=== PATIENT | male | born 1945 | race Hispanic/Latino ===

== ENCOUNTER 2019-12-07 07:09 | Day surgery (SDC) | payer OTHER ==
[2019-12-04 10:18] VITALS: BP 156/64; PULSE 63; RESP 16; TEMP 97
[2019-12-07] VITALS (11 sets, daily range): BP systolic 121–147; BP diastolic 61–71; PULSE 58–67; RESP 12–18; TEMP 96.8–97
[~2019-12-07] VITALS: Ht 167.6 cm; Wt 105.3 kg
[2019-12-07] MEDS ORDERED: SODIUM CHLORIDE 0.9% 1000ML 1,000 ML IV ONE (08:29)
[2019-12-07] MEDS ORDERED: NITROGLYCERIN 2 MG/VIAL VIAL IV ONE (09:47)
[2019-12-07] MEDS ORDERED: SODIUM BICARB 50MEQ 50ML VIAL ONE (09:47)
[2019-12-07] MEDS ORDERED: HEPARIN SODIUM 1000UNIT/ML 10ML VIAL ONE (09:47)
[2019-12-07] MEDS ORDERED: IODIXANOL 320 MG/ML 100 ML VIAL ONE (09:47)
[2019-12-07] MEDS ORDERED: LIDOCAINE HCL 2% 20ML ONE (09:48)
[2019-12-07] MEDS ORDERED: MIDAZOLAM HCL 1 MG/ML 2ML VIAL ONE (09:48)
[2019-12-07] MEDS ORDERED: FENTANYL CITRATE PF 50 MCG/1 ML 2ML VIAL ONE (09:48)
--- NOTE | 2019-12-07 11:20 | NUR ---
report received call from clarence morley rn from [employer]. pt status post afr, surgical consult, pt to f/u next week, iv fluid hydration x4 hours at 150ml/hr, v/s stable, gissel with dr vickers notified. pt had perclose done after 6fr sheath removal.
--- NOTE | 2019-12-07 13:25 | NUR ---
REPORT RECEIVED REPORT FROM OSCAR CHAU RN FOR CONTINUATION OF CARE
--- NOTE | 2019-12-07 13:52 | NUR ---
PER PT REQUEST I CALLED HIS DAUGHTER MILLI CR AND GAVE HER VERBAL DISCHARGE INSTRUCTIONS. SHE VERBALIZED UNDERSTANDING. I ALSO GAVE PT HIS PRINTED AND VERBAL DISCHARGE INSTRUCTION. HE VERBALIZED UNDERSTANDING. PT ENDORSED TO BENNETT THAKKAR
--- NOTE | 2019-12-07 15:35 | NUR ---
discharge pt in no distress. reinforced discharge instructions to pt. rt groin free from hematoma or bleeding. pt taken out via w/c in no distress by yamileth sarmiento
== END 2019-12-07 15:35 | disposition home or self-care (01) ==
LOC: DAH 07:09
PROVIDERS: ATTEND Internal Medicine Cardiovascular Disease
DX: I70.203 Unspecified atherosclerosis of native arteries of extremities, bilateral legs (principal); I10 Essential (primary) hypertension; E78.5 Hyperlipidemia, unspecified; E11.9 Type 2 diabetes mellitus without complications; Z79.01 Long term (current) use of anticoagulants; Z79.82 Long term (current) use of aspirin; Z79.899 Other long term (current) drug therapy
CPT/HCPCS: 36200; 36415; 71045; 75630; 80048; 81003; 82948 ×2; 85025; 85610; 85730; 93005; A4215; A4216; A4221; A4222; A4223 ×3; A4606; A4663; C1760; C1769; C1894 ×4; J1644 ×2; J2250; J3010; J3490 ×3; J7030; Q9967

== ENCOUNTER → 2019-12-16 | Outpatient (CLI) | payer OTHER ==
[~2019-12-16] MED LIST: AEC81 PO; AMLO10TA7 PO; ATOR10TA PO; CEFUROXIME SODIUM 1.5 GM VIAL IVP SCH; GLIM4TAB36 PO; ICOS1CAP PO; LEVO25TA54 PO; LOSA100T58 PO; METF-444 PO; SENN8.6T32 PO; SITA100T12 PO; SPIR50TA PO; vit d2 PO
[2019-12-16 10:25] LABS: BASOPHILS % (AUTO) 0.4 % (0.0-5.0); EOSINOPHILS % (AUTO) 2.4 % (0.0-8.0); HEMATOCRIT 36.6 % (42-54); LYMPHOCYTES % (AUTO) 15.6 % (21.0-51.0); MEAN CORPUSCULAR HEMOGLOBIN 29.5 pg (27.0-33.0); MEAN CORPUSCULAR HGB CONC 32.8 g/dL (32.0-36.0); MEAN CORPUSCULAR VOLUME 89.9 fL (79-99); MONOCYTES % (AUTO) 10.1 % (3.0-13.0); NEUTROPHILS % (AUTO) 71.2 % (40.0-77.0); PLATELET COUNT (AUTO) 205 K/uL (130-400); RED BLOOD CELL COUNT(AUTO) 4.07 MIL/uL (4.50-6.20); RED CELL DISTRIBUTION WIDTH 14.3 % (11.0-15.5); WHITE BLOOD COUNT (AUTO) 7.9 K/uL (4.8-10.8)
[2019-12-16 10:40] LABS: INR 0.97 (0.85-1.15); PARTIAL THROMBOPLASTIN TIME 26.8 SEC (26.3-35.5); PROTHROMBIN TIME 10.5 SEC (9.6-11.6)
[2019-12-16 10:46] LABS: ALBUMIN 3.7 g/dL (3.5-5.0); BILIRUBIN,TOTAL 0.5 mg/dL (0.2-1.0); POTASSIUM 4.8 mmol/L (3.5-5.1); TOTAL PROTEIN, SERUM 7.5 g/dL (6.0-8.3)
[2019-12-16 11:03] LABS: HEMOGLOBIN A1C 7.6 % (4.0-6.0)
== END | disposition home or self-care (01) ==
LOC: LAB 05:00 → EDSTATUS 12-22 07:30
PROVIDERS: ATTEND Thoracic Surgery (Cardiothoracic Vascular Surgery)
DX: Z01.818 Encounter for other preprocedural examination (principal); I73.9 Peripheral vascular disease, unspecified; M47.814 Spondylosis without myelopathy or radiculopathy, thoracic region; M95.4 Acquired deformity of chest and rib
CPT/HCPCS: 36415; 71046; 80053; 83036; 85025; 85610; 85730; 93005; A6260; U0003

== ENCOUNTER 2021-08-17 22:34 | Emergency (ER) | payer OTHER, MEDICARE ==
[~2021-08-17] VITALS: Ht 167.6 cm; Wt 113.4 kg
[~2021-08-17 22:34] MED LIST changes: +AMLO-258 PO; -AMLO10TA7 PO; -CEFUROXIME SODIUM 1.5 GM VIAL IVP SCH
[2021-08-17 22:51] VITALS: BP 160/62
[2021-08-17 23:15] LABS: BASOPHILS % (AUTO) 0.3 % (0.0-5.0); EOSINOPHILS % (AUTO) 4.7 % (0.0-8.0); HEMATOCRIT 30.5 % (42-54); LYMPHOCYTES % (AUTO) 18.2 % (21.0-51.0); MEAN CORPUSCULAR HEMOGLOBIN 29.2 pg (27.0-33.0); MEAN CORPUSCULAR HGB CONC 32.8 g/dL (32.0-36.0); MEAN CORPUSCULAR VOLUME 89.2 fL (79-99); MONOCYTES % (AUTO) 9.5 % (3.0-13.0); PLATELET COUNT (AUTO) 214 K/uL (130-400); RED BLOOD CELL COUNT(AUTO) 3.42 MIL/uL (4.50-6.20); RED CELL DISTRIBUTION WIDTH 15.5 % (11.0-15.5); WHITE BLOOD COUNT (AUTO) 6.8 K/uL (4.8-10.8)
[2021-08-17 23:20] LABS: APPEARANCE,URINE CLEAR (CLEAR); BILIRUBIN,URINE NEGATIVE (NEGATIVE); COLOR,URINE YELLOW (YELLOW); GLUCOSE, URINE (UA) NEGATIVE (NEGATIVE); KETONES,URINE NEGATIVE (NEGATIVE); LEUKOCYTE ESTERASE ,URINE TRACE (NEGATIVE); NITRATE,URINE NEGATIVE (NEGATIVE); OCCULT BLOOD,URINE NEGATIVE (NEGATIVE); PROTEIN,URINE 30 mg/dL (NEGATIVE); UROBILINOGEN,URINE 0.2 mg/dL (0.2-1.0)
[2021-08-17 23:25] LABS: POTASSIUM 3.8 mmol/L (3.5-5.1)
[2021-08-17 23:31] LABS: RBC,URINE 0-1 /HPF (0-1)
[2021-08-17 23:32] LABS: BACTERIA,URINE None Seen /HPF (None Seen)
[2021-08-17 23:34] LABS: SQUAMOUS EPITHELIAL CELL,UR Few /HPF (0-2)
[2021-08-17 23:34] LABS: INR 1.07 (0.85-1.15); PROTHROMBIN TIME 11.6 SEC (9.6-11.6)
== END 2021-08-18 00:36 | disposition home or self-care (01) ==
LOC: EDH 22:34
DX: G89.18 Other acute postprocedural pain (principal); R10.30 Lower abdominal pain, unspecified; M79.605 Pain in left leg; E11.9 Type 2 diabetes mellitus without complications; E78.00 Pure hypercholesterolemia, unspecified; I10 Essential (primary) hypertension; Z79.02 Long term (current) use of antithrombotics/antiplatelets; Z79.82 Long term (current) use of aspirin; Z79.84 Long term (current) use of oral hypoglycemic drugs; Z79.899 Other long term (current) drug therapy
CPT/HCPCS: 36415; 76882; 80048; 81001; 85025; 85610

== ENCOUNTER 2021-12-16 22:22 | Observation (INO) | payer OTHER, MEDICARE ==
[~2021-12-16] VITALS: Ht 175.3 cm; Wt 91.5 kg
[2021-12-16 22:41] LABS: BASOPHILS % (AUTO) 0.4 % (0.0-5.0); EOSINOPHILS % (AUTO) 5.2 % (0.0-8.0); HEMATOCRIT 37.5 % (42-54); LYMPHOCYTES % (AUTO) 27.3 % (21.0-51.0); MEAN CORPUSCULAR HEMOGLOBIN 29.7 pg (27.0-33.0); MEAN CORPUSCULAR HGB CONC 33.1 g/dL (32.0-36.0); MEAN CORPUSCULAR VOLUME 89.7 fL (79-99); MONOCYTES % (AUTO) 11.7 % (3.0-13.0); NEUTROPHILS % (AUTO) 55.1 % (40.0-77.0); PLATELET COUNT (AUTO) 217 K/uL (130-400); RED BLOOD CELL COUNT(AUTO) 4.18 MIL/uL (4.50-6.20); RED CELL DISTRIBUTION WIDTH 15.4 % (11.0-15.5); WHITE BLOOD COUNT (AUTO) 7.2 K/uL (4.8-10.8)
[2021-12-16 22:52] LABS: INR 0.94 (0.85-1.15); PROTHROMBIN TIME 10.3 SEC (9.6-11.6)
[2021-12-16 22:54] LABS: PARTIAL THROMBOPLASTIN TIME 24.3 SEC (26.3-35.5)
[2021-12-16 22:56] LABS: APPEARANCE,URINE CLEAR (CLEAR); BILIRUBIN,URINE NEGATIVE (NEGATIVE); COLOR,URINE YELLOW (YELLOW); GLUCOSE, URINE (UA) NEGATIVE (NEGATIVE); KETONES,URINE NEGATIVE (NEGATIVE); LEUKOCYTE ESTERASE ,URINE SMALL (NEGATIVE); NITRATE,URINE NEGATIVE (NEGATIVE); OCCULT BLOOD,URINE NEGATIVE (NEGATIVE); PROTEIN,URINE NEGATIVE (NEGATIVE); UROBILINOGEN,URINE 0.2 mg/dL (0.2-1.0)
[2021-12-16] MEDS ORDERED: DILTIAZEM 25MG INJ IVP ONE (23:00)
[2021-12-16 23:07] LABS: ALBUMIN 3.7 g/dL (3.5-5.0); CREATININE 1.5 mg/dL (0.5-1.5); MAGNESIUM 1.8 mg/dL (1.80-2.40); POTASSIUM 4.2 mmol/L (3.5-5.1); THYROID STIMULATING HORMONE 2.68 uIU/mL (0.36-3.74); TOTAL PROTEIN, SERUM 7.7 g/dL (6.0-8.3)
[2021-12-16 23:29] LABS: RBC,URINE 0-1 /HPF (0-1)
[2021-12-16 23:30] LABS: BACTERIA,URINE Moderate /HPF (None Seen)
[2021-12-16 23:32] LABS: SQUAMOUS EPITHELIAL CELL,UR Few /HPF (0-2)
[2021-12-16 23:38] LABS: B-TYPE NATRIURETIC PEPTIDE 191 pg/mL (0-100)
[2021-12-17] MEDS ORDERED: ONDANSETRON 4MG INJ IV PRN (00:30)
[2021-12-17] MEDS ORDERED: NITROGLYCERIN 0.4 MG SL TAB SL PRN (00:30)
[2021-12-17] MEDS ORDERED: ACETAMINOPHEN 325 MG TAB PO PRN ×2 (00:30)
[2021-12-17] MEDS ORDERED: GLUCAGON 1MG KIT 1 MG ML IM PRN (01:00)
[2021-12-17] MEDS ORDERED: DEXTROSE 50%-WATER 50 ML DISP.SYRIN IV PRN (01:00)
[2021-12-17] MEDS: CEFTRIAXONE 1G VIAL IV SCH (01:01)
[2021-12-17] MEDS: ASPIRIN 81 MG EC TAB PO SCH ×3 (01:01→15:08)
[2021-12-17] MEDS: METOPROLOL TARTRATE 25 MG TAB PO SCH ×4 (01:01→20:08)
[2021-12-17 01:50] LABS: HEMOGLOBIN A1C 6.7 % (4.0-6.0)
[2021-12-17] MEDS ORDERED: DILTIAZEM 125 MG/25 ML INJ IV ONE (01:58)
[2021-12-17] MEDS ORDERED: DILTIAZEM 125 MG/25 ML INJ 125 MG in 0.9%NACL 100ML 100 ML IV SCH (02:00)
[2021-12-17 02:05] LABS: AMPHET/METH SCREEN,URINE NEGATIVE (NEGATIVE); BARBITURATE SCREEN, URINE NEGATIVE (NEGATIVE); BENZODIAZEPINES SCREEN,URINE NEGATIVE (NEGATIVE); CANNABINOID SCREEN,URINE NEGATIVE (NEGATIVE); COCAINE SCREEN,URINE NEGATIVE (NEGATIVE); OPIATE SCREEN,URINE NEGATIVE (NEGATIVE); PHENCYCLIDINE SCREEN,URINE NEGATIVE (NEGATIVE)
[2021-12-17 03:50] VITALS: BP 118/64
[2021-12-17] MEDS: INSULIN HUMULIN R 100 UNIT/ML 3ML SQ SCH ×4 (06:50→20:35)
[2021-12-17 06:57] LABS: MAGNESIUM 1.6 mg/dL (1.80-2.40)
[2021-12-17 08:00] VITALS: BP 125/70
[2021-12-17] MEDS: FAMOTIDINE 20MG TAB PO SCH ×2 (08:52→20:34)
[2021-12-17] MEDS: HEPARIN 5,000 UNIT VIAL SQ SCH ×3 (08:55→20:35)
[2021-12-17] MEDS ORDERED: MAGNESIUM 2GM PREMIX 50ML 50 ML IV PRN (09:00)
[2021-12-17 11:53] VITALS: BP 110/55
[2021-12-17 16:00] VITALS: BP 115/74
[2021-12-17] MEDS: SPIRONOLACTONE 25 MG TAB PO SCH (16:13)
[2021-12-17 20:00] VITALS: BP 141/72
[2021-12-17] MEDS: FISH OIL 1000 MG/CAP PO SCH (20:34)
[2021-12-17] MEDS ORDERED: ATORVASTATIN 10 MG TABLET PO SCH (21:00)
[2021-12-18] VITALS: BP 134/68
[2021-12-18] MEDS: CEFTRIAXONE 1G VIAL IV SCH (01:05)
[2021-12-18 04:00] VITALS: BP 133/70
[2021-12-18 05:16] LABS: BASOPHILS % (AUTO) 0.3 % (0.0-5.0); EOSINOPHILS % (AUTO) 5.7 % (0.0-8.0); HEMATOCRIT 34.2 % (42-54); LYMPHOCYTES % (AUTO) 30.7 % (21.0-51.0); MEAN CORPUSCULAR HEMOGLOBIN 29.4 pg (27.0-33.0); MEAN CORPUSCULAR HGB CONC 32.2 g/dL (32.0-36.0); MEAN CORPUSCULAR VOLUME 91.4 fL (79-99); MONOCYTES % (AUTO) 9.8 % (3.0-13.0); NEUTROPHILS % (AUTO) 53.2 % (40.0-77.0); PLATELET COUNT (AUTO) 187 K/uL (130-400); RED BLOOD CELL COUNT(AUTO) 3.74 MIL/uL (4.50-6.20); RED CELL DISTRIBUTION WIDTH 15.7 % (11.0-15.5)
[2021-12-18 05:28] LABS: ALBUMIN 3.1 g/dL (3.5-5.0); CREATININE 1.2 mg/dL (0.5-1.5); MAGNESIUM 1.8 mg/dL (1.80-2.40); POTASSIUM 4.2 mmol/L (3.5-5.1); TOTAL PROTEIN, SERUM 6.7 g/dL (6.0-8.3)
[2021-12-18] MEDS: INSULIN HUMULIN R 100 UNIT/ML 3ML SQ SCH ×3 (06:23→15:48)
[2021-12-18] MEDS ORDERED: LEVOTHYROXINE 25 MCG TABLET PO SCH (06:30)
[2021-12-18] MEDS: SPIRONOLACTONE 25 MG TAB PO SCH (07:09)
[2021-12-18] MEDS: METOPROLOL TARTRATE 25 MG TAB PO SCH (07:09)
[2021-12-18] MEDS: ASPIRIN 81 MG EC TAB PO SCH ×2 (07:09)
[2021-12-18] MEDS: FISH OIL 1000 MG/CAP PO SCH (07:09)
[2021-12-18] MEDS: FAMOTIDINE 20MG TAB PO SCH (07:10)
[2021-12-18] MEDS: HEPARIN 5,000 UNIT VIAL SQ SCH ×2 (07:57→13:59)
[2021-12-18 07:59] VITALS: BP 151/74
[2021-12-18] MEDS ORDERED: REGADENOSON 0.4 MG/5 ML PF SYG IVP SCH (09:00)
[2021-12-18 11:20] VITALS: BP 151/75
[2021-12-18] MEDS ORDERED: APIX5TAB PO (13:30)
[2021-12-18 15:44] VITALS: BP 152/68
== END 2021-12-18 18:15 | disposition home or self-care (01) ==
LOC: EDH 22:22 → EDHIP 12-17 00:12 → INTOOBSV 12-17 00:12 → 2AH 12-17 03:51
PROVIDERS: ADMIT Hospitalist; ATTEND Hospitalist
DX: I48.20 Chronic atrial fibrillation, unspecified (principal); Z20.822 Contact with and (suspected) exposure to COVID-19; R07.89 Other chest pain; I48.0 Paroxysmal atrial fibrillation; I49.5 Sick sinus syndrome; I45.5 Other specified heart block; I51.7 Cardiomegaly; I12.9 Hypertensive chronic kidney disease with stage 1 through stage 4 chronic kidney disease, or unspecified chronic kidney disease; E11.22 Type 2 diabetes mellitus with diabetic chronic kidney disease; N18.31 Chronic kidney disease, stage 3a; E78.5 Hyperlipidemia, unspecified; I70.202 Unspecified atherosclerosis of native arteries of extremities, left leg; I70.92 Chronic total occlusion of artery of the extremities; E03.9 Hypothyroidism, unspecified; E11.51 Type 2 diabetes mellitus with diabetic peripheral angiopathy without gangrene; E66.9 Obesity, unspecified; Z68.32 Body mass index [BMI] 32.0-32.9, adult; Z79.01 Long term (current) use of anticoagulants; Z79.02 Long term (current) use of antithrombotics/antiplatelets; Z79.82 Long term (current) use of aspirin; Z79.899 Other long term (current) drug therapy
CPT/HCPCS: 36415; 71045; 78452; 80053; 80061; 80305; 81001; 82948; 83036; 83735; 83880; 84443; 84484; 85025; 85610; 85730; 87077; 87088; 87186; 87635; 93005; 93017; 93306; 93356; 96365; 96366; 96368; 96372; 96374; 96375; 96376; 99291; A9500; G0378; J0696; J1644; J2405; J2785; J3475; J3490

== ENCOUNTER 2021-12-31 08:27 | Emergency (ER) | payer OTHER, MEDICARE ==
[~2021-12-31] VITALS: Ht 170.2 cm; Wt 90.7 kg
[~2021-12-31 08:27] MED LIST changes: -AEC81 PO; +APIX5TAB PO
[2021-12-31 09:09] LABS: BASOPHILS % (AUTO) 0.5 % (0.0-5.0); EOSINOPHILS % (AUTO) 3.5 % (0.0-8.0); HEMATOCRIT 36.4 % (42-54); LYMPHOCYTES % (AUTO) 16.9 % (21.0-51.0); MEAN CORPUSCULAR HEMOGLOBIN 29.8 pg (27.0-33.0); MEAN CORPUSCULAR VOLUME 90.3 fL (79-99); NEUTROPHILS % (AUTO) 71.6 % (40.0-77.0); PLATELET COUNT (AUTO) 213 K/uL (130-400); RED BLOOD CELL COUNT(AUTO) 4.03 MIL/uL (4.50-6.20); RED CELL DISTRIBUTION WIDTH 15.5 % (11.0-15.5); WHITE BLOOD COUNT (AUTO) 6.6 K/uL (4.8-10.8)
[2021-12-31 09:45] LABS: ALANINE AMINOTRANSFERASE 16 U/L (12-78); ALBUMIN 3.6 g/dL (3.5-5.0); ASPARTATE AMINOTRANSFERASE 19 U/L (10-37); CARBON DIOXIDE 21 mmol/L (21-32); CHLORIDE 108 mmol/L (101-111); CREATINE KINASE, TOTAL 99 U/L (21-232); GLUCOSE,RANDOM 144 mg/dL (70-105); POTASSIUM 4.5 mmol/L (3.5-5.1); SODIUM SERUM 141 mmol/L (136-145); TOTAL PROTEIN, SERUM 7.6 g/dL (6.0-8.3); UREA NITROGEN, BLOOD 27 mg/dL (7-18)
[2021-12-31 10:25] LABS: B-TYPE NATRIURETIC PEPTIDE 385 pg/mL (0-100)
[2021-12-31 10:25] LABS: APPEARANCE,URINE CLEAR (CLEAR); BILIRUBIN,URINE NEGATIVE (NEGATIVE); COLOR,URINE YELLOW (YELLOW); GLUCOSE, URINE (UA) NEGATIVE (NEGATIVE); KETONES,URINE NEGATIVE (NEGATIVE); LEUKOCYTE ESTERASE ,URINE NEGATIVE (NEGATIVE); NITRATE,URINE NEGATIVE (NEGATIVE); OCCULT BLOOD,URINE NEGATIVE (NEGATIVE); PROTEIN,URINE NEGATIVE (NEGATIVE); UROBILINOGEN,URINE 0.2 mg/dL (0.2-1.0)
[2021-12-31 10:50] LABS: INR 1.01 (0.85-1.15)
[2021-12-31 10:52] LABS: PARTIAL THROMBOPLASTIN TIME 28.6 SEC (26.3-35.5)
[2021-12-31 11:08] LABS: CREATININE 1.1 mg/dL (0.5-1.5); GLOMERULAR FILTR. RATE CALC 69 mL/min (>60)
[2021-12-31] MEDS ORDERED: MECL-160 PO (14:16)
[2021-12-31 14:23] VITALS: BP 133/57
[2021-12-31] MEDS ORDERED: DEXAMETHASONE SOD PHOSPHATE 4 MG/ML 1ML VIAL IV ONE (14:30)
[2021-12-31] MEDS ORDERED: MECLIZINE HCL 25 MG TABLET PO ONE (14:30)
== END 2021-12-31 14:30 | disposition home or self-care (01) ==
LOC: EDH 08:27
DX: R42 Dizziness and giddiness (principal); R11.0 Nausea; R53.1 Weakness; Z20.822 Contact with and (suspected) exposure to COVID-19; E03.9 Hypothyroidism, unspecified; E11.9 Type 2 diabetes mellitus without complications; E78.00 Pure hypercholesterolemia, unspecified; I48.91 Unspecified atrial fibrillation; M19.90 Unspecified osteoarthritis, unspecified site; Z79.01 Long term (current) use of anticoagulants; Z79.84 Long term (current) use of oral hypoglycemic drugs; Z79.899 Other long term (current) drug therapy; Z85.038 Personal history of other malignant neoplasm of large intestine; Z95.5 Presence of coronary angioplasty implant and graft
CPT/HCPCS: 70551; 99285; 96374; 70450; 71045; 87635; 82550; 83735; 84484; 80053; 83880; 83690; 85025; 85610; 85730; 81003; 36415; 70547; 93005; 70544; J1100; C9803

== ENCOUNTER → 2022-09-12 | Outpatient (CLI) | payer OTHER, MEDICARE ==
[~2022-09-12] MED LIST changes: +MECL-160 PO
== END | disposition home or self-care (01) ==
LOC: SHCH 12:55
PROVIDERS: ATTEND Internal Medicine Cardiovascular Disease
DX: I70.202 Unspecified atherosclerosis of native arteries of extremities, left leg (principal)
CPT/HCPCS: 93926

== ENCOUNTER → 2022-12-19 | Outpatient (CLI) | payer OTHER, MEDICARE ==
[~2022-12-19] MED LIST changes: -LOSA100T58 PO; +LOSA100T59 PO
== END | disposition home or self-care (01) ==
LOC: SHCH 09:21
PROVIDERS: ATTEND Internal Medicine Cardiovascular Disease
DX: G45.1 Carotid artery syndrome (hemispheric) (principal)
CPT/HCPCS: 93880

== ENCOUNTER → 2023-01-29 | Outpatient (CLI) | payer OTHER, MEDICARE ==
[2023-01-29 12:41] LABS: CHOLESTEROL 163 mg/dL (<200); HDL CHOLESTEROL 32 mg/dL (29-71); LDL DIRECT 64 mg/dL (0-99); TRIGLYCERIDES 296 mg/dL (30-200)
== END | disposition home or self-care (01) ==
LOC: LAB 08:03
PROVIDERS: ATTEND Internal Medicine Cardiovascular Disease
DX: I73.9 Peripheral vascular disease, unspecified (principal); I10 Essential (primary) hypertension
CPT/HCPCS: 36415; 80061

== ENCOUNTER → 2023-02-04 | Outpatient (CLI) | payer OTHER, MEDICARE ==
[2023-02-04 12:25] LABS: CREATININE 1.3 mg/dL (0.5-1.5); POTASSIUM 5.1 mmol/L (3.5-5.1)
== END | disposition home or self-care (01) ==
LOC: LAB 08:13
PROVIDERS: ATTEND Internal Medicine Cardiovascular Disease
DX: I73.9 Peripheral vascular disease, unspecified (principal); I10 Essential (primary) hypertension; E78.5 Hyperlipidemia, unspecified
CPT/HCPCS: 36415; 80048

== ENCOUNTER → 2023-02-11 | Outpatient (CLI) | payer OTHER, MEDICARE ==
[2023-02-11 12:43] LABS: CREATININE 1.4 mg/dL (0.5-1.5); POTASSIUM 4.8 mmol/L (3.5-5.1)
== END | disposition home or self-care (01) ==
LOC: LAB 08:56
PROVIDERS: ATTEND Internal Medicine Cardiovascular Disease
DX: I10 Essential (primary) hypertension (principal); I73.9 Peripheral vascular disease, unspecified; E78.5 Hyperlipidemia, unspecified
CPT/HCPCS: 36415; 80048

== ENCOUNTER → 2023-02-19 | Outpatient (CLI) | payer OTHER, MEDICARE ==
[2023-02-19 12:43] LABS: CREATININE 1.3 mg/dL (0.5-1.5)
== END | disposition home or self-care (01) ==
LOC: LAB 08:09
PROVIDERS: ATTEND Internal Medicine Cardiovascular Disease
DX: I73.9 Peripheral vascular disease, unspecified (principal); I10 Essential (primary) hypertension; E78.5 Hyperlipidemia, unspecified
CPT/HCPCS: 36415; 80048

== ENCOUNTER → 2023-02-21 | Outpatient (CLI) | payer OTHER, MEDICARE ==
[2023-02-21 12:29] LABS: CHOLESTEROL 115 mg/dL (<200); HDL CHOLESTEROL 28 mg/dL (29-71); LDL DIRECT 40 mg/dL (0-99); TRIGLYCERIDES 307 mg/dL (30-200)
== END | disposition home or self-care (01) ==
LOC: LAB 08:04
PROVIDERS: ATTEND Internal Medicine Cardiovascular Disease
DX: E78.5 Hyperlipidemia, unspecified (principal)
CPT/HCPCS: 36415; 80061

== ENCOUNTER → 2023-05-28 | Outpatient (CLI) | payer OTHER, MEDICARE ==
[~2023-05-28] MED LIST changes: -MECL-160 PO; +MECL-302 PO
== END | disposition home or self-care (01) ==
LOC: SHCH 15:23
PROVIDERS: ATTEND Internal Medicine Cardiovascular Disease
DX: I65.23 Occlusion and stenosis of bilateral carotid arteries (principal); I25.10 Atherosclerotic heart disease of native coronary artery without angina pectoris; I65.02 Occlusion and stenosis of left vertebral artery; I70.203 Unspecified atherosclerosis of native arteries of extremities, bilateral legs; I48.0 Paroxysmal atrial fibrillation; I10 Essential (primary) hypertension; E78.5 Hyperlipidemia, unspecified
CPT/HCPCS: 93880

== ENCOUNTER → 2023-06-29 | Outpatient (CLI) | payer OTHER, MEDICARE | END | disposition home or self-care (01) | LOC: SHCH 14:19 | PROVIDERS: ATTEND Internal Medicine Cardiovascular Disease | DX: I70.203 Unspecified atherosclerosis of native arteries of extremities, bilateral legs (principal) | CPT/HCPCS: 93925 ==

== ENCOUNTER → 2023-08-02 | Outpatient (CLI) | payer OTHER, MEDICARE ==
[2023-08-02 12:24] LABS: CHOLESTEROL 115 mg/dL (<200); HDL CHOLESTEROL 30 mg/dL (29-71); LDL DIRECT 53 mg/dL (0-99); TRIGLYCERIDES 197 mg/dL (30-200)
== END | disposition home or self-care (01) ==
LOC: LAB 08:03
PROVIDERS: ATTEND Internal Medicine Cardiovascular Disease
DX: E78.5 Hyperlipidemia, unspecified (principal)
CPT/HCPCS: 36415; 80061

== ENCOUNTER → 2023-12-09 | Outpatient (CLI) | payer OTHER | END | disposition home or self-care (01) | LOC: OIH 14:45 | PROVIDERS: ATTEND Internal Medicine Cardiovascular Disease | DX: Z13.6 Encounter for screening for cardiovascular disorders (principal) | CPT/HCPCS: 75571 ==

== ENCOUNTER → 2024-01-20 | Outpatient (CLI) | payer MEDICARE | END | disposition home or self-care (01) | LOC: SHCH 08:25 | PROVIDERS: ATTEND Internal Medicine Cardiovascular Disease | DX: I65.23 Occlusion and stenosis of bilateral carotid arteries (principal) | CPT/HCPCS: 93880 ==

== ENCOUNTER → 2024-05-07 | Outpatient (CLI) | payer OTHER, MEDICARE ==
[2024-05-07 12:49] LABS: CREATININE 1.4 mg/dL (0.5-1.3); POTASSIUM 4.9 mmol/L (3.5-5.1)
== END | disposition home or self-care (01) ==
LOC: LAB 09:53
PROVIDERS: ATTEND Internal Medicine Cardiovascular Disease
DX: I70.203 Unspecified atherosclerosis of native arteries of extremities, bilateral legs (principal)
CPT/HCPCS: 36415; 80048

== ENCOUNTER → 2025-02-12 | Outpatient (CLI) | payer OTHER, MEDICARE ==
[~2025-02-12] VITALS: Ht 170.2 cm; Wt 95.8 kg
[~2025-02-12] MED LIST changes: +0.9%NACL 1000ML 1,000 ML IV ONE; +ASPI-1443 PO; +COLC0.6T79 PO; +DILT120C78 PO; +DRON400T7 PO; +EZET10TA80 PO; +FAMO20TA8 PO; +HYDR12.54 PO; +HYDR25TA67 PO; +HYDR50TA37 PO; +LINA145C PO; +MULT-1289 PO; +NITR0.4T50 SL; +PANT40TA55 PO; +ROSU40TA88 PO; +SUCR1TAB2 PO; +SUGAMMADEX SODIUM 200 MG/2 ML VIAL IV ONE
[2025-02-12 08:53] LABS: IMMATURE GRANULOCYTE ABSOLUTE 0.02 K/uL (0-1); NUCLEATED RED BLOOD CELLS 0.0 % (0.0-0.19); PLATELET COUNT (AUTO) 195 K/uL (130-400); RED BLOOD CELL COUNT(AUTO) 3.48 MIL/uL (4.50-6.20); RED CELL DISTRIBUTION WIDTH 15.0 % (11.0-15.5); WHITE BLOOD COUNT (AUTO) 5.9 K/uL (4.8-10.8)
[2025-02-12 09:01] VITALS: BP 168/84; PULSE 50; RESP 14; TEMP 97.3
[2025-02-12 09:03] LABS: CREATININE 1.6 mg/dL (0.5-1.3); GLOMERULAR FILTR. RATE CALC 44.0 mL/min (>90); GLUCOSE,RANDOM 137.0 mg/dL (70-105); SODIUM SERUM 140.0 mmol/L (136-145); UREA NITROGEN, BLOOD 25.0 mg/dL (7-18)
[2025-02-12 09:14] LABS: INR 1.14 (0.85-1.15)
--- NOTE | 2025-02-12 11:11 | EKG ---
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
== END | disposition home or self-care (01) ==
LOC: DAH 07:56 → EDSTATUS 02-16 09:00
PROVIDERS: ATTEND Internal Medicine Cardiovascular Disease
DX: Z01.818 Encounter for other preprocedural examination (principal); I48.0 Paroxysmal atrial fibrillation; R94.31 Abnormal electrocardiogram [ECG] [EKG]
CPT/HCPCS: 36415; 80048; 85025; 85610; 85730; 93005; J7030

== ENCOUNTER 2025-02-15 22:16 | Observation (INO) | payer OTHER, MEDICARE ==
[~2025-02-15] VITALS: Ht 170.2 cm; Wt 94.3 kg
[~2025-02-15 22:16] MED LIST changes: -0.9%NACL 1000ML 1,000 ML IV ONE; -AMLO-258 PO; -ATOR10TA PO; -COLC0.6T79 PO; -GLIM4TAB36 PO; -HYDR50TA37 PO; -LOSA100T59 PO; -MECL-302 PO; -PANT40TA55 PO; -SENN8.6T32 PO; -SPIR50TA PO; -SUCR1TAB2 PO; -SUGAMMADEX SODIUM 200 MG/2 ML VIAL IV ONE; -vit d2 PO
--- NOTE | 2025-02-15 22:40 | ERN ---
ED Note History of Present Illness Stated Complaint: PALPITATIONS WITH HISTORY OF AFIB Chief Complaint: Palpitations Time Seen by MD: 22:23 Time Seen by Midlevel: 22:23 Dictation: The patient is a 79-year-old male with a history of AFib on Eliquis, diabetes, hypertension, colon cancer who presents to the emergency department with complaints of palpitations onset 8:00 p.m. while watching TV. Patient denies any chest pain, denies any shortness of breath. Reports that he is scheduled for an ablation tomorrow with Dr. Magallon. Allergies: Coded Allergies: No Known Drug Allergies (Unverified Allergy, Unknown, 12/07/19) Home Meds Reported Medications Dronedarone Hydrochloride (Multaq) 400 Mg Tablet, 400 MG PO BID, TAB 02/12/25 Aspirin (Aspirin EC) 81 Mg Tablet.dr, 81 MG PO DAILY, TAB 02/12/25 Ezetimibe (Ezetimibe) 10 Mg Tablet, 10 MG PO HS, TAB 02/12/25 Hydrochlorothiazide (Hydrochlorothiazide) 12.5 Mg Tablet, 12.5 MG PO DAILY, TAB 02/12/25 Hydralazine HCl (Hydralazine HCl) 25 Mg Tablet, 25 MG PO [id number], TAB 02/12/25 Apixaban (Eliquis) 5 Mg Tablet, 5 MG PO BID, TAB 02/12/25 Famotidine (Famotidine) 20 Mg Tablet, 20 MG PO HS, TAB 02/12/25 Mv-Min/Folic/K1/Lycopen/Lutein (Centrum Silver Men Tablet) 300 Mcg-60 Mcg-600 Mcg-300 Mcg Tablet, 1 EACH PO DAILY, TAB 02/12/25 Linaclotide (Linzess) 145 Mcg Capsule, 145 MCG PO DAILY, CAP 02/12/25 Diltiazem HCl (Diltiazem ER) 120 Mg Capsule.er, 120 MG PO DAILY, CAP 02/12/25 Rosuvastatin Calcium (Rosuvastatin Calcium) 40 Mg Tablet, 40 MG PO HS, TAB 02/12/25 Nitroglycerin (Nitroglycerin) 0.4 Mg Tab.subl, 0.4 MG SL AD PRN for CHEST PAIN, TAB.SL 02/12/25 Levothyroxine Sodium (Levothyroxine Sodium) 25 Mcg Tablet, 25 MCG PO DAILY, TAB 12/07/19 Icosapent Ethyl (Vascepa) 1 Gm Capsule, 2 CAP PO BID, CAP 12/07/19 Sitagliptin Phosphate (Januvia) 100 Mg Tablet, 100 MG PO DAILY, TAB 12/07/19 Metformin HCl (Metformin HCl) 500 Mg Tablet, 1000 MG PO BID, TAB 12/07/19 Discontinued Reported Medications Glimepiride (Glimepiride) 4 Mg Tablet, 4 MG PO DAILY, TAB 12/07/19 Spironolactone (Aldactone) 50 Mg Tablet, 50 MG PO DAILY, TAB 12/07/19 Sennosides (Senna) 8.6 Mg Tablet, 4 TAB PO DAILY, TAB 12/07/19 Amlodipine Besylate (Amlodipine Besylate) 10 Mg Tablet, 10 MG PO DAILY, TAB 12/07/19 Losartan Potassium (Losartan Potassium) 100 Mg Tablet, 100 MG PO DAILY, TAB 12/07/19 Atorvastatin Calcium (Lipitor) 10 Mg Tablet, 10 MG PO HS, TAB 12/07/19 [vit d2] No Conflict Check, 08603 PO QWEEK 12/07/19 Discontinued Scripts Meclizine HCl (Meclizine HCl) 25 Mg Tablet, 25 MG PO TID PRN for DIZZINESS, #30 TAB 0 Refills Prov:LISA NICOLE MD 12/31/21 Apixaban (Eliquis) 5 Mg Tablet, 5 MG PO BID for 30 Days, #60 TAB 3 Refills Prov:JAZMYN CARCAMO MD 12/18/21 Past Medical History Past Medical History: A-Fib, Arthritis, Cancer, Diabetes-Type II, High Cholesterol, Hypertension, Renal Disese Additional Past Medical Hx: HYPOTHYROIDISM , BELS PALSY Surgical History: Other Surgical History Other: CARDIAC STENTS, COLON CANCER Social History: Lives with family, Other RN Note Reviewed/Agreed w/PFSH: Yes Review of System Dictation Constitutional: Negative for fever,chills, and weight loss Eyes: Negative for injury, pain,redness, and discharge ENT: Negative for injury,pain or swelling Cardiovascular: Negative for chest pain,, and edema positive for palpitations Respiratory: Negative for shortness of breath, cough, and wheezing, Abdomen/GI: Negative for abdominal pain, nausea, vomiting, diarrhea, and constipation Back: Negative for injury and pain : Negative for injury, bleeding and discharge MS/Extremity: Negative for injury and deformity Skin: Negative for rash, and discoloration Neuro: Negative for headache, weakness, numbness, tingling, and seizure Psych: Negative for suicide ideation, homicidal ideation, and hallucinations Initial Vital Sign VS Vital Signs Date Time Temp Pulse Resp B/P (MAP) Pulse Ox O2 Delivery O2 Flow Rate FiO2 02/15/25 22:19 97.5 65 18 173/80 96 Room Air 0 02/15/25 22:41 21 Physical Exam Dictation Vital Signs reviewed General Appearance: Alert, oriented x 3, no acute distress, well developed, nourished. Head and Face: non-traumatic. Eyes: PERRL, pink conjunctivas, eyelid no trauma, anterior chamber with arcus senilis. Ears: Pinnas intact and no signs of trauma or erythema ear canals clear and no d ischarge TM no erythema Nose: No discharge, no bleeding. Oropharynx: Mouth normal, tongue pink. pharynx clear,no erythema, tonsils no exudates, no abscesses noted, mucous membrane moist Neck: Supple, non-tender, no thyromegaly, no masses, no JVD, no bruits Breast:Deferred Chest:No tenderness, no crepitus, no paradoxical movement, no retractions Lungs:Clear, well-ventilated, symmetric, no rales, no wheezing, no rhonchi, no stridor, good breath sounds bilaterally Heart: Regular rate, regular rhythm, no murmur, no gallops Vascular: no peripheral edema, Abdomen: Soft, positive bowel sounds, nondistended, no guarding, nontender, no rebound, no masses no hepatomegaly, no splenomegaly, no Crenshaw's sign, no hernias. Rectal: Deferred Genital: Deferred Neurological: Normal speech, motor function intact, sensory function intact Musculoskeletal: Neck nontender, full range of motion, back nontender, full range of motion, Extremities: nontender, full range of motion Skin: Color pink, dry, no turgor, no rash, no lacerations, no abrasions, no contusions. Lymphatic: Deferred Results (Laboratory/Radiology) Laboratory/Radiology Laboratory Tests Test 02/15/25 22:35 02/15/25 22:41 White Blood Count 5.6 K/uL (4.8-10.8) Red Blood Count 3.44 MIL/uL (4.50-6.20) L Hemoglobin 10.7 g/dL (14.0-18.0) L Hematocrit 32.5 % (42-54) L Mean Corpuscular Volume 94.5 fL (79-99) Mean Corpuscular Hemoglobin 31.1 pg (27.0-33.0) Mean Corpuscular Hemoglobin Concent 32.9 g/dL (32.0-36.0) Red Cell Distribution Width 14.9 % (11.0-15.5) Platelet Count 188 K/uL (130-400) Mean Platelet Volume 10.6 fL (7.5-10.5) H Immature Granulocyte % (Auto) 0.2 % (0-1) Neutrophils (%) (Auto) 58.7 % (40.0-77.0) Lymphocytes (%) (Auto) 23.1 % (21.0-51.0) Monocytes (%) (Auto) 13.5 % (3.0-13.0) H Eosinophils (%) (Auto) 4.1 % (0.0-8.0) Basophils (%) (Auto) 0.4 % (0.0-5.0) Neutrophils # (Auto) 3.3 K/uL (1.8-7.7) Lymphocytes # (Auto) 1.3 K/uL (1.0-4.8) Monocytes # (Auto) 0.8 K/uL (0.1-1.0) Eosinophils # (Auto) 0.23 K/uL (0.00-0.70) Basophils # (Auto) 0.02 K/uL (0.00-0.20) Absolute Immature Granulocyte (auto 0.01 K/uL (0-1) Nucleated Red Blood Cells 0.0 % (0.0-0.19) Sodium Level 139 mmol/L (136-145) Potassium Level 4.0 mmol/L (3.5-5.1) Chloride Level 105 mmol/L (101-111) Carbon Dioxide Level 23 mmol/L (21-32) Blood Urea Nitrogen 35 mg/dL (7-18) H Creatinine 1.8 mg/dL (0.5-1.3) H Glomerular Filtration Rate Calc 38 mL/min (>90) Random Glucose 143 mg/dL (70-105) H Total Calcium 8.5 mg/dL (8.5-10.1) Magnesium Level 2.40 mg/dL (1.80-2.40) Total Creatine Kinase 126 U/L (21-232) # Troponin I High Sensitivity 24 ng/L (4-75) Urine Color LIGHT-YELLOW (YELLOW) Urine Appearance CLEAR (CLEAR) Urine pH 5.5 (5.0-8.0) Urine Specific [place] 1.012 (1.001-1.031) Urine Protein 50 mg/dL (NEGATIVE) H Urine Glucose (UA) NEGATIVE mg/dL (NEGATIVE) Urine Ketones NEGATIVE mg/dL (NEGATIVE) Urine Occult Blood NEGATIVE (NEGATIVE) Urine Nitrate NEGATIVE (NEGATIVE) Urine Bilirubin NEGATIVE mg/dL (NEGATIVE) Urine Urobilinogen 0.2 mg/dL (0.2-1.0) Urine Leukocyte Esterase NEGATIVE Crista/uL Urine RBC 0-1 /HPF (0-1) Urine WBC 0-1 /HPF (0-1) Urine Bacteria None /HPF (None Seen) REASON: palpitations ORDERING PHYSICIAN: SHAN VERNON [employer]GE[employer] PROCEDURE: CXR1VW - CHEST 1VW EXAM: CR Chest, 1 view CLINICAL HISTORY: Palpitations. COMPARISON: Chest radiograph dated 12/02/2019. FINDINGS: The lungs show no infiltrates or other acute findings. No pleural effusion or pneumothorax. The cardiomediastinal silhouette is within normal limits. No acute osseous abnormality. IMPRESSION: No acute cardiopulmonary process is evident. Compared to the prior study, there is no significant interval change. /[place] Labs Reviewed?: Yes EKG: (+) rhythm (Sinus rhythm) EKG Comment: Date:02/15/2025 Time:2227 Ventricular rate:66 MD interval:189 QRS duration:104 QT/QTc:427/447 EKG interpretation: Sinus rhythm Reviewed by ED Attending No stemi ED Course ED Course Orders Procedure Category Date Status Time Cbc With Differential LAB 02/15/25 Complete 22:30 Chest 1vw RAD 02/15/25 Resulted 22:30 12 Lead Ekg Tracing- EKG 02/15/25 Logged Technical 22:30 Magnesium LAB 02/15/25 Complete 22:30 Creatine Kinase, Total LAB 02/15/25 Complete 22:30 Troponin I High LAB 02/15/25 Complete Sensitivity 22:30 Urinalysis Profile LAB 02/15/25 Complete 22:30 Basic Metabolic Panel LAB 02/15/25 Complete 22:30 Admit Orders ADM 02/16/25 Transmitted 00:23 Edm Admit Bridge Order ADM 02/16/25 Transmitted 00:25 Vital Signs Date Time Temp Pulse Resp B/P (MAP) Pulse Ox O2 Delivery O2 Flow Rate FiO2 02/15/25 23:30 97.5 55 18 160/68 96 Room Air* 0 21 02/15/25 22:41 97.5 64 18 144/69 98 Room Air* 0 21 02/15/25 22:19 97.5 65 18 173/80 96 Room Air 0 Medical Decision Making MDM MDM: The patient is a 79-year-old male with a history of AFib on Eliquis, diabetes, hypertension, colon cancer who presents to the emergency department with complaints of palpitations onset 8:00 p.m. while watching TV. Patient denies any chest pain, denies any shortness of breath. Reports that he is scheduled for an ablation tomorrow with Dr. Magallon. CBC showed no leukocytosis, mild normocytic anemia, chemistry showed no electrolyte imbalance, creatinine of 1.8 Similar to previous visits. Chest x- ray showed no acute pathology. Patient's EKG showed sinus rhythm. Given patient is supposed to be get an ablation who admit for observation of any arrhythmias overnight and have him get the ablation in the morning. Differential diagnosis: AFib, electrolyte imbalance, dehydration, ACS Comorbidities: AFib, diabetes, hypertension, colon cancer Tests considered and not ordered secondary to shared decision making include: none Previous outside records reviewed: none Risk of complication and/or morbidity or mortality of patient management: The patient meets criteria for admission. Need for emergency major/minor surgery: No There are no social concerns with this patient. I independently interpreted the tests I ordered (labs, urinalysis, etc.). I discussed the case with the hospitalist for admission. Kina HWANG who accepts admission I discussed the case with the following specialists: none. Historian: pateint. I independently interpreted imaging studies and EKGs that I ordered (US, CT, XR, EKG, etc.). External chart review: none. Medical management and examination interpretation discussions were had by me with other qualified healthcare professionals as indicated for the patient's care. DX & DISP Disposition: Inpatient Decision to Admit Date: Feb 16, 2025 Decision to Admit Time: 00:30 Departure Impression: Primary Impression: Palpitations Additional Impressions: History of atrial fibrillation, Anemia Condition: Stable Referrals: LIZ GRANDA MD (PCP) I have examined patient, & reviewed all documents, & agreed W/ the Diagnosis SHAN VERNON [employer]GE[employer] Feb 15, 2025 22:40
[2025-02-15 22:45] LABS: IMMATURE GRANULOCYTE ABSOLUTE 0.01 K/uL (0-1); NUCLEATED RED BLOOD CELLS 0.0 % (0.0-0.19); PLATELET COUNT (AUTO) 188 K/uL (130-400); RED BLOOD CELL COUNT(AUTO) 3.44 MIL/uL (4.50-6.20); RED CELL DISTRIBUTION WIDTH 14.9 % (11.0-15.5); WHITE BLOOD COUNT (AUTO) 5.6 K/uL (4.8-10.8)
[2025-02-15 22:54] LABS: APPEARANCE,URINE CLEAR (CLEAR); GLUCOSE, URINE (UA) NEGATIVE (NEGATIVE); LEUKOCYTE ESTERASE ,URINE NEGATIVE Leu/uL (NEGATIVE); NITRATE,URINE NEGATIVE (NEGATIVE); OCCULT BLOOD,URINE NEGATIVE (NEGATIVE)
[2025-02-15 22:55] LABS: ADD UA MICROSCOPIC YES
--- NOTE | 2025-02-15 23:48 | HMCIMG ---
EXAM: CR Chest, 1 view CLINICAL HISTORY: Palpitations. COMPARISON: Chest radiograph dated 12/02/2019. FINDINGS: The lungs show no infiltrates or other acute findings. No pleural effusion or pneumothorax. The cardiomediastinal silhouette is within normal limits. No acute osseous abnormality. IMPRESSION: No acute cardiopulmonary process is evident. Compared to the prior study, there is no significant interval change. /[place]
[2025-02-16] VITALS (9 sets, daily range): BP systolic 154–168; BP diastolic 65–73; PULSE 49–60; RESP 13–20; TEMP 97.8–98.6; O2SAT 98–99
[2025-02-16 00:01] LABS: CREATINE KINASE, TOTAL 126.0 U/L (21-232); CREATININE 1.8 mg/dL (0.5-1.3); GLOMERULAR FILTR. RATE CALC 38.0 mL/min (>90); GLUCOSE,RANDOM 143.0 mg/dL (70-105); SODIUM SERUM 139.0 mmol/L (136-145); UREA NITROGEN, BLOOD 35.0 mg/dL (7-18)
[2025-02-16] MEDS ORDERED: LACTULOSE 20 GM/30 ML UDCUP PO PRN (00:30)
--- NOTE | 2025-02-16 00:34 | HP ---
[facility] Date of Service: Feb 16, 2025 Time of Service: 00:34 Attending/supervising physicians: Dr. Anderson and Dr. Gaston Mitchell HISTORY OF PRESENT ILLNESS: Mr. Noel is a 79 year old male with a history of A-Fib on Eliquis, diabetes mellitus type ll, colon cancer, arthritis, renal disease, Deleon's palsy, high cholesterol, hypertension, and hypothyroidism who presented for evaluation of palpitations onset 8:00 p.m while watching TV. He reported that he is scheduled for an ablation tomorrow with Dr. Magallon. He denied any chest pain, shortness of breath, any other pain, problem or concern. VS: HR 65 bpm, RR 18 bpm, BP 173/80, 96% RA, 97.5 F. Labs: Chemistry: BUN 35, Creatine 1.8, Random Glucose 143, Hematology: RBC 3.44, Hgb 10.7, Hct 32.5, MPV 10.6, Urine: Protien 50, negative for Nitrate and Leukocyte Esterase. Chest X- ray: No acute cardiopulmonary process is evident. No medications received in ED. ED provider requested patient be admitted to the hospital with a diagnosis of palpitations, history of atrial fibrillation, anemia. I assessed the patient at bedside. The patient appeared comfortable, breathing was even, unlabored, in no distress. Patient continues to denied chest pain or shortness of breath. I informed him of labs, diagnostics, plan of care. He verbalized understanding and is in agreement with the plan. Plan and assessment are listed below. REVIEW OF SYSTEMS 12-point ROS reviewed with the patient. All pertinent positives mentioned above. Otherwise negative, noncontributory, non-pertinent. PAST MEDICAL HISTORY: As mentioned above PAST SURGICAL HISTORY: Cardiac Stents, colon cancer PAST SOCIAL HISTORY: Denied alcohol, tobacco, illicit drug use FAMILY HISTORY: Noncontributory Coded Allergies: No Known Drug Allergies (Unverified Allergy, Unknown, 12/07/19) PHYSICAL EXAM GENERAL APPEARANCE: The patient is awake, alert, and oriented, in no acute cardiopulmonary distress. NEUROLOGICAL: Cranial nerves II-XII grossly intact. Motor is 5/5 in bilateral upper and lower extremities proximal to distal. No sensory deficits. HEENT: Face is symmetric. Pupils are equal and reactive. Extraocular movements are intact. NECK: Supple. No JVD. No thyromegaly. No submental, submandibular, pre- /postauricular, occipital or supraclavicular lymphadenopathy. CHEST: Normal chest expansion. No Telemetry. LUNGS: Absence of any rales, rhonchi or any wheezing. CARDIOVASCULAR: Regular. S1 and S2 normal. No appreciable rubs, murmurs or gallops. ABDOMEN: Soft, nontender, and nondistended. There is no rebound, voluntary guarding, or rigidity. : Deferred. No Werner. EXTREMITIES: Non-edematous and not cyanotic. No clubbing. Good capillary refill. SKIN: No skin breakdown. Vital Sign (Last 24 Hours) 02/15/25 23:30 Temp 97.5 Pulse 55 Resp 18 B/P (MAP) 160/68 Pulse Ox 96 O2 Delivery Room Air* O2 Flow Rate 0 FiO2 21 LABS: Laboratory: Test 02/15/25 22:41 02/15/25 22:35 Range/Units Urine Color LIGHT-YELLOW YELLOW Urine Appearance CLEAR CLEAR Urine pH 5.5 5.0-8.0 Urine Specific [place] 1.012 1.001-1.031 Urine Protein 50 H NEGATIVE mg/dL Urine Glucose (UA) NEGATIVE NEGATIVE mg/dL Urine Ketones NEGATIVE NEGATIVE mg/dL Urine Occult Blood NEGATIVE NEGATIVE Urine Nitrate NEGATIVE NEGATIVE Urine Bilirubin NEGATIVE NEGATIVE mg/dL Urine Urobilinogen 0.2 0.2-1.0 mg/dL Urine Leukocyte Esterase NEGATIVE NEGATIVE Crista/uL Urine RBC 0-1 0-1 /HPF Urine WBC 0-1 0-1 /HPF Urine Bacteria None None Seen /HPF White Blood Count 5.6 4.8-10.8 K/uL Red Blood Count 3.44 L 4.50-6.20 MIL/uL Hemoglobin 10.7 L 14.0-18.0 g/dL Hematocrit 32.5 L 42-54 % Mean Corpuscular Volume 94.5 79-99 fL Mean Corpuscular Hemoglobin 31.1 27.0-33.0 pg Mean Corpuscular Hemoglobin Concent 32.9 32.0-36.0 g/dL Red Cell Distribution Width 14.9 11.0-15.5 % Platelet Count 188 130-400 K/uL Mean Platelet Volume 10.6 H 7.5-10.5 fL Immature Granulocyte % (Auto) 0.2 0-1 % Neutrophils (%) (Auto) 58.7 40.0-77.0 % Lymphocytes (%) (Auto) 23.1 21.0-51.0 % Monocytes (%) (Auto) 13.5 H 3.0-13.0 % Eosinophils (%) (Auto) 4.1 0.0-8.0 % Basophils (%) (Auto) 0.4 0.0-5.0 % Neutrophils # (Auto) 3.3 1.8-7.7 K/uL Lymphocytes # (Auto) 1.3 1.0-4.8 K/uL Monocytes # (Auto) 0.8 0.1-1.0 K/uL Eosinophils # (Auto) 0.23 0.00-0.70 K/uL Basophils # (Auto) 0.02 0.00-0.20 K/uL Absolute Immature Granulocyte (auto 0.01 0-1 K/uL Nucleated Red Blood Cells 0.0 0.0-0.19 % Sodium Level 139 136-145 mmol/L Potassium Level 4.0 3.5-5.1 mmol/L Chloride Level 105 101-111 mmol/L Carbon Dioxide Level 23 21-32 mmol/L Blood Urea Nitrogen 35 H 7-18 mg/dL Creatinine 1.8 H 0.5-1.3 mg/dL Glomerular Filtration Rate Calc 38 >90 mL/min Random Glucose 143 H 70-105 mg/dL Total Calcium 8.5 8.5-10.1 mg/dL Magnesium Level 2.40 1.80-2.40 mg/dL Total Creatine Kinase 126 # 21-232 U/L Troponin I High Sensitivity 24 4-75 ng/L DIAGNOSTICS / RADIOLOGY: [ ] ASSESSMENT: Palpitations, POA Uncontrolled hypertension, POA Bradycardia, POA (HR 50s bpm in ED) Uncontrolled hypertension, POA History of atrial fibrillation, diagnosed on 12/2021 History of PAD, s/p failed left femoral tibial bypass with perfusion revascularization of left leg June 2021 and right leg September 2021 EF 55-60% per echo on 12/17/2021 History of 50-65% stenosis on left internal carotid artery alert all per carotid Doppler on 01/20/2024 Anemia of chronic disease Acute kidney injury, GFR 38, (GFR 52 on 05/07/2024, GFR 44 on 02/12/2025) Acute on chronic kidney disease, GFR 38 Diabetes mellitus with hyperglycemia Proteinuria Hypothyroidism Obesity, BMI 32.9 PLAN: -Admit to medical floor with continuous telemetry monitoring. -Troponin levels and EKG series. -Cardiology consult: [facility] and Dr. Abraham in the am. -2D echo in a.m. with heart clinic to read. -Carotid Doppler. -NPO after midnight. -LR75 mL an hour. -start patient's home medication levothyroxine, hydroxyzine and Apresoline. -PRN medications for pain management, fever, N/V, constipation, hypertension. -Oxygen supplement as needed to maintain oxygen levels equal to or greater than 92% -Nitroglycerin sublingual as needed chest pain -Atorvastatin 40 mg PO daily. -Strict I&O. -Blood pressure checks every 4 hours and as needed. -Reconcile home medications once available. -Glucometer checks before meals and at bedtime with insulin regular sliding scale. - Monitor renal and liver function. -Monitor electrolytes and treat accordingly PRN -AM labs. -GI and DVT prophylaxis -Further plan/orders per hospitalization course. ADVANCED CARE PLANNING 1. Which of the following were discussed? Hospice Care - No Therapeutic options - Yes Advance Directives - Yes Other discussions - 2. Discussed with who? The patient 3. Voluntary nature of this service was explained to the patient? Yes 4. Amount of time spent - __ Over 35 minutes 5. Reviewed by Physician? (if this service was performed by ERI) Yes ATTESTATION BY PHYSICIAN I have seen and examined the patient. I reviewed the documentation, medical decision making, and treatment plan as noted by the ERI above. I agree with the findings and plan of care. CELINA TIERNEY [facility] Feb 16, 2025 00:34
[2025-02-16] MEDS: LACTATED RINGERS 1000ML 1,000 ML IV SCH (03:58)
--- NOTE | 2025-02-16 06:07 | EKG ---
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
--- NOTE | 2025-02-16 06:50 | NUR ---
Spoke to Dr. Jhony Anderson at 0648 he said the pt wasn't 1st on the list this morning he was second and he would swing by the er to talk to the pt.
--- NOTE | 2025-02-16 06:52 | NUR ---
at 0530 the patient took his list of home meds that Dr Jhony Anderson said he was to take on the procedure day. They where his Diltiazem, levothyroxine, hydralazine, aspirin, and multag. I Enriqueta Zee LVN witnessed him take the home meds.
--- NOTE | 2025-02-16 07:10 | EKG ---
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
[2025-02-16 08:42] LABS: NUCLEATED RED BLOOD CELLS 0.0 % (0.0-0.19); PLATELET COUNT (AUTO) 182.0 K/uL (130-400); RED BLOOD CELL COUNT(AUTO) 3.67 MIL/uL (4.50-6.20); RED CELL DISTRIBUTION WIDTH 14.7 % (11.0-15.5); WHITE BLOOD COUNT (AUTO) 4.5 K/uL (4.8-10.8)
[2025-02-16 08:53] LABS: INR 1.13 (0.85-1.15)
[2025-02-16 09:06] LABS: ASPARTATE AMINOTRANSFERASE 31.0 U/L (10-37); CREATININE 1.4 mg/dL (0.5-1.3); GLOMERULAR FILTR. RATE CALC 51.0 mL/min (>90); GLUCOSE,RANDOM 149.0 mg/dL (70-105); PHOSPHORUS 3.6 mg/dL (2.5-4.9); SODIUM SERUM 140.0 mmol/L (136-145); TOTAL PROTEIN, SERUM 7.0 g/dL (6.0-8.3); UREA NITROGEN, BLOOD 24.0 mg/dL (7-18)
[2025-02-16] MEDS ORDERED: DRON400T7 PO (10:28)
[2025-02-16] MEDS ORDERED: HYDR50TA37 PO (10:28)
--- NOTE | 2025-02-16 11:12 | NUR ---
Dr. Anderson by to see pt.
[2025-02-16] MEDS ORDERED: GLUCAGON 1MG KIT 1 MG ML IM PRN (12:00)
[2025-02-16] MEDS ORDERED: DEXTROSE 50%-WATER 50 ML DISP.SYRIN IV PRN (12:00)
--- NOTE | 2025-02-16 14:58 | NUR ---
DCP:HOME Pt currently lives alone in her home. Pt states that he has a walker in his home. Pt does not have any home health services. Pt does have a provider that goes to the home 4 hrs a day and assist with home management and meals. PCP is Dr. Mackenzie Simental and uses [facility] for any RX needs. AT [place] pt will want to go home and family can assist with transportation, Addendum: 02/16/25 at 1501 by DAI ELLIS SS Amended: Links added.
[2025-02-16] MEDS: FAMOTIDINE 20MG TAB PO SCH (20:37)
[2025-02-16] MEDS: EZETIMIBE 10 MG TAB PO SCH (20:40)
[2025-02-16] MEDS: DRONEDARONE HYDROCHLORIDE 400 MG TABLET PO SCH (20:40)
[2025-02-16] MEDS: ICOSAPENT ETHYL PO SCH (20:53)
[2025-02-16] MEDS ORDERED: HYDRALAZINE HCL PO SCH (21:00)
[2025-02-17] VITALS (23 sets, daily range): BP systolic 126–176; BP diastolic 56–77; PULSE 51–80; RESP 13–18; TEMP 97.5–99.5; O2SAT 98
[2025-02-17 04:11] LABS: NUCLEATED RED BLOOD CELLS 0.0 % (0.0-0.19); PLATELET COUNT (AUTO) 164.0 K/uL (130-400); RED BLOOD CELL COUNT(AUTO) 3.41 MIL/uL (4.50-6.20); RED CELL DISTRIBUTION WIDTH 14.6 % (11.0-15.5); WHITE BLOOD COUNT (AUTO) 5.3 K/uL (4.8-10.8)
[2025-02-17 04:21] LABS: CREATININE 1.3 mg/dL (0.5-1.3); GLOMERULAR FILTR. RATE CALC 56.0 mL/min (>90); GLUCOSE,RANDOM 100.0 mg/dL (70-105); PHOSPHORUS 4.5 mg/dL (2.5-4.9); SODIUM SERUM 140.0 mmol/L (136-145); UREA NITROGEN, BLOOD 26.0 mg/dL (7-18)
[2025-02-17] MEDS ORDERED: MIDAZOLAM HCL 1 MG/ML 2ML VIAL ONE (06:48)
[2025-02-17] MEDS ORDERED: LIDOCAINE HCL 400MG/20ML VIAL ONE (07:09)
[2025-02-17] MEDS ORDERED: HEParin-NS 1,000 UNIT/500 ML 1,000 ML IV ONE (07:09)
[2025-02-17] MEDS ORDERED: SODIUM BICARB 50MEQ 50ML VIAL 50 ML ONE (07:09)
--- NOTE | 2025-02-17 07:25 | NUR ---
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 PATIENT TRANSFERRED NOW.
[2025-02-17] MEDS: VITAMIN B COMPLEX 1 CAPSULE PO SCH (08:08)
[2025-02-17] MEDS: ASPIRIN 81 MG EC TAB PO SCH (08:08)
[2025-02-17] MEDS ORDERED: GLYCOPYRROLATE 0.2 MG/ML 5 ML VIAL ONE (08:35)
--- NOTE | 2025-02-17 09:32 | HMCIMG ---
EXAMINATION: DUPLEX ULTRASOUND EXAMINATION OF THE BILATERAL CAROTID AND VERTEBRAL ARTERIES. CLINICAL HISTORY: Stenosis of left internal carotid artery. COMPARISON: Carotid Doppler dated 01/20/2024. TECHNIQUE: Real-time ultrasound scan of the bilateral carotid and vertebral arteries, 2-D grayscale, with color Doppler flow and spectral waveform analysis. FINDINGS: Color and spectral Doppler interrogation of the carotid vessels on the right demonstrate peak systolic velocities as follows: CCA (Proximal and distal): 50 and 48 cm/s respectively. ECA: 132 cm/s. ICA (Proximal, mid, and distal): 87, 130, and 126 cm/s respectively. Vertebral artery demonstrates antegrade flow: 22 cm/s. Right ICA/CCA ratio: 2.9 Peak systolic velocities on the left are as follows: CCA (Proximal and distal): 72 and 76 cm/s respectively. ECA: 104 cm/s. ICA (Proximal, mid, and distal): 153, 158 and 127 cm/s respectively. Vertebral artery demonstrates antegrade flow: 24 cm/s. Left ICA/CCA ratio: 2.1 Both the common carotid arteries and their branches reveal mild intimal thickening. There are calcified plaques in the right bulb and internal carotid artery causing about 20% to 30% diameter stenosis. There is a calcified plaque in the left bulb causing about 40% to 50% diameter stenosis. IMPRESSION: Mild intimal thickening in the bilateral carotid arteries and their branches. Plaques as described. Bilateral ICA/CCA ratio is more than 2, suggesting 50% to 69% stenosis. Interval appearance. Recommend CT/MR angiogram. /[place]
[2025-02-17] MEDS ORDERED: SUGAMMADEX SODIUM 200 MG/2 ML VIAL IV ONE (12:16)
[2025-02-17] MEDS ORDERED: SUCR1TAB2 PO (12:25)
[2025-02-17] MEDS ORDERED: PANT40TA55 PO (12:25)
--- NOTE | 2025-02-17 14:06 | PN ---
[facility] PROGRESS NOTE Date of Service: Feb 17, 2025 Time of Service: 14:03 SUBJECTIVE: 02/17 patient remains admitted to the PCU, blood pressure earlier this morning 147/60, patient is scheduled for ablation today by EP Dr. Abraham. Hemoglobin today 10.5, hematocrit 32.4, creatinine at 1.8 at the time of admission, today better at 1.3. Patient on hydrochlorothiazide 12.5 mg p.o. daily, Cardizem 120 mg p.o. daily, Synthroid 25 mg p.o. daily, continue Protonix and Carafate. Continue aspirin 81 mg p.o. daily. Continue to follow Cardiology input recommendation, follow a.m. labs. Ultrasound carotid mild in 10- thickening bilateral carotid arteries and their branches, bilateral ICA/CCA ratio is more than two, suggesting 50-69% stenosis. REVIEW OF SYSTEMS 12-point ROS reviewed with the patient. All pertinent positives mentioned above. Otherwise negative, noncontributory, non-pertinent. PHYSICAL EXAM GENERAL APPEARANCE: The patient is awake, alert, and oriented, in no acute cardiopulmonary distress. NEUROLOGICAL: Cranial nerves II-XII grossly intact. Motor is 5/5 in bilateral upper and lower extremities proximal to distal. No sensory deficits. HEENT: Face is symmetric. Pupils are equal and reactive. Extraocular movements are intact. NECK: Supple. No JVD. No thyromegaly. No submental, submandibular, pre-/postauricular, occipital or supraclavicular lymphadenopathy. CHEST: Normal chest expansion. No Telemetry. LUNGS: Absence of any rales, rhonchi or any wheezing. CARDIOVASCULAR: Regular. S1 and S2 normal. No appreciable rubs, murmurs or gallops. ABDOMEN: Soft, nontender, and nondistended. There is no rebound, voluntary guarding, or rigidity. : Deferred. No Werner. EXTREMITIES: Non-edematous and not cyanotic. No clubbing. Good capillary refill. SKIN: No skin breakdown. Vital Signs (last 8hr) Date Time Temp Pulse Resp B/P (MAP) Pulse Ox O2 Delivery O2 Flow Rate FiO2 02/17/25 13:20 97.7 71 17 132/59 97 Room Air 02/17/25 13:15 73 15 137/64 97 Room Air 02/17/25 13:10 73 15 135/62 97 Room Air 02/17/25 13:05 74 16 138/61 97 Room Air 02/17/25 13:00 74 16 136/60 97 Room Air 02/17/25 12:55 72 17 133/59 97 Room Air 02/17/25 12:50 72 15 131/59 98 Room Air 02/17/25 12:45 74 16 140/62 98 Room Air 02/17/25 12:40 75 15 143/62 98 Room Air 02/17/25 12:35 97.5 76 13 145/64 100 Nonrebreathing Mask 10.0 02/17/25 08:00 Room Air 02/17/25 07:20 98 Room Air* 0 21 LABS: Laboratory: Test 02/17/25 05:23 02/17/25 03:50 02/16/25 08:00 02/15/25 22:41 Range/Units Whole Blood Glucose 102 70-110 MG/DL White Blood Count 5.3 4.8-10.8 K/uL Red Blood Count 3.41 L 4.50-6.20 MIL/uL Hemoglobin 10.5 L 14.0-18.0 g/dL Hematocrit 32.4 L 42-54 % Mean Corpuscular Volume 95.0 79-99 fL Mean Corpuscular Hemoglobin 30.8 27.0-33.0 pg Mean Corpuscular Hemoglobin Concent 32.4 32.0-36.0 g/dL Red Cell Distribution Width 14.6 11.0-15.5 % Platelet Count 164 130-400 K/uL Mean Platelet Volume 10.4 7.5-10.5 fL Nucleated Red Blood Cells 0.0 0.0-0.19 % Sodium Level 140 136-145 mmol/L Potassium Level 5.0 3.5-5.1 mmol/L Chloride Level 107 101-111 mmol/L Carbon Dioxide Level 27 21-32 mmol/L Blood Urea Nitrogen 26 H 7-18 mg/dL Creatinine 1.3 0.5-1.3 mg/dL Glomerular Filtration Rate Calc 56 >90 mL/min Random Glucose 100 70-105 mg/dL Total Calcium 8.6 8.5-10.1 mg/dL Phosphorus Level 4.5 2.5-4.9 mg/dL Magnesium Level 2.10 1.80-2.40 mg/dL Prothrombin Time 11.8 H 9.6-11.6 SEC Prothromb Time International Ratio 1.13 0.85-1.15 Activated Partial Thromboplast Time 28.5 26.3-35.5 SEC Hemoglobin A1c 6.4 H 4.0-6.0 % Estimated Average Glucose (eAG) 137 H 70-126 mg/dL Total Bilirubin 0.3 0.2-1.0 mg/dL Aspartate Amino Transf (AST/SGOT) 31 10-37 U/L Alanine Aminotransferase (ALT/SGPT) 34 12-78 U/L Alkaline Phosphatase 64 50-136 U/L Troponin I High Sensitivity 21 4-75 ng/L B-Type Natriuretic Peptide 209 H 0-100 pg/mL Total Protein 7.0 6.0-8.3 g/dL Albumin 3.3 L 3.5-5.0 g/dL Thyroid Stimulating Hormone (TSH) 1.88 # 0.36-3.74 uIU/mL Urine Color LIGHT-YELLOW YELLOW Urine Appearance CLEAR CLEAR Urine pH 5.5 5.0-8.0 Urine Specific [place] 1.012 1.001-1.031 Urine Protein 50 H NEGATIVE mg/dL Urine Glucose (UA) NEGATIVE NEGATIVE mg/dL Urine Ketones NEGATIVE NEGATIVE mg/dL Urine Occult Blood NEGATIVE NEGATIVE Urine Nitrate NEGATIVE NEGATIVE Urine Bilirubin NEGATIVE NEGATIVE mg/dL Urine Urobilinogen 0.2 0.2-1.0 mg/dL Urine Leukocyte Esterase NEGATIVE NEGATIVE Crista/uL Urine RBC 0-1 0-1 /HPF Urine WBC 0-1 0-1 /HPF Urine Bacteria None None Seen /HPF Test 02/15/25 22:35 Range/Units Immature Granulocyte % (Auto) 0.2 0-1 % Neutrophils (%) (Auto) 58.7 40.0-77.0 % Lymphocytes (%) (Auto) 23.1 21.0-51.0 % Monocytes (%) (Auto) 13.5 H 3.0-13.0 % Eosinophils (%) (Auto) 4.1 0.0-8.0 % Basophils (%) (Auto) 0.4 0.0-5.0 % Neutrophils # (Auto) 3.3 1.8-7.7 K/uL Lymphocytes # (Auto) 1.3 1.0-4.8 K/uL Monocytes # (Auto) 0.8 0.1-1.0 K/uL Eosinophils # (Auto) 0.23 0.00-0.70 K/uL Basophils # (Auto) 0.02 0.00-0.20 K/uL Absolute Immature Granulocyte (auto 0.01 0-1 K/uL Total Creatine Kinase 126 # 21-232 U/L Current Medications Medications (Trade) Dose Ordered Sig/Lucas Route PRN Reason Start Time Stop Time Status Last Admin Dose Admin Acetaminophen (TYLenol 325MG TAB) 650 mg Q6H PRN PO FEVER/MILD PAIN LEVEL 1-3 02/16/25 00:30 03/18/25 00:29 Acetaminophen (TYLenol 650MG SUPPOSITORY) 650 mg Q6H PRN RC FEVER / MILD PAIN 1-3 IF NPO 02/16/25 00:30 03/18/25 00:29 Apixaban (EliquIS) 5 mg BID PO 02/16/25 21:00 03/18/25 20:59 02/16/25 20:40 5 MG Aspirin (Aspirin 81mg Ec Tab) 81 mg DAILY PO 02/17/25 09:00 03/19/25 08:59 Atorvastatin Calcium (LIPItor 40MG) 80 mg HS PO 02/16/25 21:00 03/18/25 20:59 02/16/25 20:40 80 MG Dextrose (D50w) 50 ml AD PRN IV HYPOGLYCEMIA PROTOCOL 02/16/25 12:00 03/18/25 11:59 Diltiazem HCl (CARDIzem 120MG CD) 120 mg DAILY PO 02/17/25 09:00 03/19/25 08:59 Docusate Sodium (COLace 100MG CAP) 100 mg BID PRN PO c 02/16/25 00:30 03/18/25 00:29 Dronedarone (Multaq) 400 mg BID PO 02/16/25 21:00 03/18/25 20:59 02/16/25 20:40 400 MG EZETIMIBE (Zetia) 10 mg HS PO 02/16/25 21:00 03/18/25 20:59 02/16/25 20:40 10 MG Famotidine (Pepcid 20mg Tab) 20 mg HS PO 02/16/25 21:00 03/18/25 20:59 02/16/25 20:37 20 MG Glucagon (Glucagon 1mg Kit) 1 mg AD PRN IM HYPOGLYCEMIA PROTOCOL 02/16/25 12:00 03/18/25 11:59 Home Med (Home Medication) BID PO 02/16/25 21:00 03/18/25 20:59 02/16/25 20:53 2 EACH Home Med (Home Medication) DAILY PO 02/17/25 09:00 03/19/25 08:59 Hydralazine HCl ([id number] TAB) 50 mg TID PO 02/16/25 09:00 03/18/25 08:59 02/16/25 20:38 50 MG Hydrochlorothiazide (hydroCHLOROthiazide 25MG) 12.5 mg DAILY PO 02/16/25 09:00 02/16/25 17:29 DC Hydrochlorothiazide (hydroCHLOROthiazide 25MG) 12.5 mg DAILY PO 02/17/25 09:00 03/19/25 08:59 Insulin Human Regular (humuLIN R 100 UNIT/ML 3ML) INSULIN SLIDING SCAL... ACHS SQ 02/16/25 07:30 03/18/25 07:29 Labetalol HCl (TRANdate 20MG SYG) 10 mg Q2H PRN IV SBP GREATER THAN 160 02/16/25 00:30 02/16/25 00:45 DC Lactated Ringer's 1,000 ml @ 75 mls/hr [id number] IV 02/16/25 00:30 03/18/25 00:29 02/17/25 03:30 75 MLS/HR Lactulose (Constulose 20gm/ 30ml Udcup) 20 gm Q6H PRN PO CONSTIPATION 02/16/25 00:30 03/18/25 00:29 Levothyroxine Sodium (SYNTHroid 25MCG TAB) 25 mcg DAILY PO 02/17/25 09:00 02/17/25 12:45 DC Levothyroxine Sodium (SYNTHroid 25MCG TAB) 25 mcg SYN PO 02/16/25 06:30 02/17/25 12:42 DC 02/17/25 05:47 25 MCG Levothyroxine Sodium (SYNTHroid 25MCG TAB) 25 mcg SYN PO 02/18/25 06:30 03/20/25 06:29 Miscellaneous Medication (Hydralazine HCl ) 1 tab TID PO 02/16/25 21:00 02/16/25 17:27 DC Nitroglycerin (Nitrostat) 0.4 mg AD PRN SL CHEST PAIN 02/16/25 17:30 03/18/25 17:29 Ondansetron HCl (zoFRAN 4MG INJ) 4 mg Q6H PRN IVP NAUSEA/VOMITING 02/16/25 00:30 03/18/25 00:29 Pantoprazole Sodium (PROTonix 40MG TAB) 40 mg DAILY PO 02/18/25 09:00 03/20/25 08:59 Sucralfate (Carafate) 1 gm Q6H PO 02/17/25 12:30 03/19/25 12:29 Temazepam (restORIL 15 MG CAP) 15 mg HS PRN PO INSOMNIA/SLEEP 02/16/25 00:30 03/18/25 00:29 Vitamin B Complex/ Folic Acid (B Complex) 1 cap DAILY PO 02/17/25 09:00 03/19/25 08:59 DIAGNOSTICS / RADIOLOGY: [ ] ASSESSMENT: Palpitations, POA Uncontrolled hypertension, POA Bradycardia, POA (HR 50s bpm in ED) Uncontrolled hypertension, POA History of atrial fibrillation, diagnosed on 12/2021 History of PAD, s/p failed left femoral tibial bypass with perfusion revascularization of left leg June 2021 and right leg September 2021 EF 55-60% per echo on 12/17/2021 History of 50-65% stenosis on left internal carotid artery alert all per carotid Doppler on 01/20/2024 Anemia of chronic disease Acute kidney injury, GFR 38, (GFR 52 on 05/07/2024, GFR 44 on 02/12/2025) Acute on chronic kidney disease, GFR 38 Diabetes mellitus with hyperglycemia Proteinuria Hypothyroidism Obesity, BMI 32.9 Carotid artery disease, possible 50-69% stenosis PLAN: Patient remains admitted to the PCU, scheduled for ablation today by mobile crane operator. NEURO: Minimize central acting medications as possible. Fall Precautions. Well lighted room through the day and minimize interruptions through the night to prevent acute delirium. PULMONARY: Supplemental 02 as needed BiPAP as necessary, for respiratory distress Titrate Fio2 to keep Spo2 > or = 90% DuoNebs and CPT as needed IS hourly while awake for pulmonary hygiene prn Out of bed to chair as tolerated Maintain aspiration precautions at all times CARDIOVASCULAR: Follow hemodynamics. Vital signs per facility protocol GI & NUTRITION: Continue nutritional support Aspirations precautions Prokinetic agents and laxatives as needed KIDNEYS & ELECTROLYTES: Strict monitoring of intake and output Daily weights Avoid nephrotoxic agents Monitor electrolytes and replace as needed Goal urine output of 30mL/hr or 0.5mL/kg/hr Medications to be dosed according to renal function. Avoid contrast if possible ENDOCRINE: Maintain blood glucose between 100-180 at all times. Insulin sliding scale for blood glucose management Hypoglycemia and hyperglycemia protocol in place INFECTIOUS DISEASE: Trend temperature, WBC and procalcitonin level Follow cultures, deescalate antibiotics as soon as possible. Panculture if new onset fever HEMATOLOGY & COAGULATION: Monitor H&H. Keep Hgb > 7 Transfuse 1 unit of PRBC for Hgb < 7 Transfuse 1 pack of platelets of platelets < 20, 000 Watch for any signs and symptoms of bleeding SKIN: Pressure ulcer prevention per facility protocol Specialty mattress as needed ORTHO/REHAB Continue PT/OT PRN: MEDICATIONS Tylenol 650 mg po every 4 hrs for fever zofran 4 mg IV every 6 hrs for n/v Hydralazine 5 mg IV every 4 hrs systolic pressure > 160 bowel regiment: lactulose 20 gm PO BID PRN constipation Supportive measures: Continue GI and DVT prophylaxis Disposition: Pending improvement in clinical condition All questions answered time spent: > 35 min KRYSTAL MCNEAL MD Feb 17, 2025 14:06
[2025-02-17] MEDS: SUCRALFATE 1 GM/10 ML PO SCH (14:54)
[2025-02-17 16:09] LABS: NUCLEATED RED BLOOD CELLS 0.0 % (0.0-0.19); PLATELET COUNT (AUTO) 176.0 K/uL (130-400); RED BLOOD CELL COUNT(AUTO) 3.58 MIL/uL (4.50-6.20); RED CELL DISTRIBUTION WIDTH 14.6 % (11.0-15.5); WHITE BLOOD COUNT (AUTO) 8.6 K/uL (4.8-10.8)
[2025-02-17 17:00] LABS: ASPARTATE AMINOTRANSFERASE 39.0 U/L (10-37); CREATININE 1.2 mg/dL (0.5-1.3); GLOMERULAR FILTR. RATE CALC 62.0 mL/min (>90); GLUCOSE,RANDOM 145.0 mg/dL (70-105); SODIUM SERUM 139.0 mmol/L (136-145); TOTAL PROTEIN, SERUM 6.6 g/dL (6.0-8.3); UREA NITROGEN, BLOOD 24.0 mg/dL (7-18)
[2025-02-18] VITALS (8 sets, daily range): BP systolic 149–177; BP diastolic 68–85; PULSE 73–93; RESP 18–20; TEMP 98.5–98.9; O2SAT 98
[2025-02-18 04:51] LABS: NUCLEATED RED BLOOD CELLS 0.0 % (0.0-0.19); PLATELET COUNT (AUTO) 168.0 K/uL (130-400); RED BLOOD CELL COUNT(AUTO) 3.35 MIL/uL (4.50-6.20); RED CELL DISTRIBUTION WIDTH 14.8 % (11.0-15.5); WHITE BLOOD COUNT (AUTO) 8.3 K/uL (4.8-10.8)
[2025-02-18 05:04] LABS: ASPARTATE AMINOTRANSFERASE 35.0 U/L (10-37); CREATININE 1.4 mg/dL (0.5-1.3); GLOMERULAR FILTR. RATE CALC 51.0 mL/min (>90); GLUCOSE,RANDOM 110.0 mg/dL (70-105); SODIUM SERUM 140.0 mmol/L (136-145); TOTAL PROTEIN, SERUM 6.2 g/dL (6.0-8.3); UREA NITROGEN, BLOOD 22.0 mg/dL (7-18)
[2025-02-18] MEDS: NITROGLYCERIN 0.4 MG SL TAB SL PRN (06:45)
--- NOTE | 2025-02-18 07:25 | NUR ---
Nursing Note/Chest pain complaint by patient Notified Dr. Abraham of patient's complain of chest pain. Dr. Abraham called back and updated on patient's condition/status. Previous shift mgr, RN had given 3 Nitrostat and patient still c/o chest pain. Patient stated felt like he couldn't breathe as well. Patient was placed on 2-3L O2 NC by shift mgr RN. EKG report given to Dr. Abraham. VS results given as well. Orders received. Dr. Abraham to come see patient.
[2025-02-18] MEDS ORDERED: COLC0.6T79 PO (10:52)
[2025-02-18 13:03] LABS: NUCLEATED RED BLOOD CELLS 0.0 % (0.0-0.19); PLATELET COUNT (AUTO) 168.0 K/uL (130-400); RED BLOOD CELL COUNT(AUTO) 3.44 MIL/uL (4.50-6.20); RED CELL DISTRIBUTION WIDTH 14.8 % (11.0-15.5); WHITE BLOOD COUNT (AUTO) 9.8 K/uL (4.8-10.8)
--- NOTE | 2025-02-18 15:12 | NUR ---
DISCHARGE Discharge instructions given to patient. Patient verbalized knowledge and understanding. Patient knows need for follow up appointment for Dr. Abraham pending due to no answer from scheduling. Voicemail left for appointment setup. Patient knows the need to chart picker new prescription scripts at his pharmacy. Personal belongings gathered and given back to patient. Patient stated his daughter would not be able to be here until around 1600 due to her coming from [place], [place]. Pending private transportation home.
--- NOTE | 2025-02-18 15:43 | NUR ---
DISCHARGE Patient's daughter arrived from [place] and is to provide patient private transportation home. Patient discharged now, escorted via wheelchair by GENERAL MANAGER LAND DEPARTMENT.
--- NOTE | 2025-02-19 07:58 | DS ---
Discharge Summary Hospital Course Summary: Date of service 02/19/2024: Mr. Noel is a 79 year old male with a history of A-Fib on Eliquis, diabetes mellitus type ll, colon cancer, arthritis, renal disease, Deleon's palsy, high cholesterol, hypertension, and hypothyroidism who presented for evaluation of palpitations onset 8:00 p.m while watching TV. He reported that he is scheduled for an ablation tomorrow with Dr. Magallon. He denied any chest pain, shortness of breath, any other pain, problem or concern. VS: HR 65 bpm, RR 18 bpm, BP 173/80, 96% RA, 97.5 F. Labs: Chemistry: BUN 35, Creatine 1.8, Random Glucose 143, Hematology: RBC 3.44, Hgb 10.7, Hct 32.5, MPV 10.6, Urine: Protien 50, negative for Nitrate and Leukocyte Esterase. Chest X- ray: No acute cardiopulmonary process is evident. No medications received in ED. ED provider requested patient be admitted to the hospital with a diagnosis of palpitations, history of atrial fibrillation, anemia. I assessed the patient at bedside. The patient appeared comfortable, breathing was even, unlabored, in no distress. Patient continues to denied chest pain or shortness of breath. I informed him of labs, diagnostics, plan of care. He verbalized understanding and is in agreement with the plan. Plan and assessment are listed below. HOSPITAL COURSE 02/17 patient remains admitted to the PCU, blood pressure earlier this morning 147/60, patient is scheduled for ablation today by EP Dr. Ball. Hemoglobin today 10.5, hematocrit 32.4, creatinine at 1.8 at the time of admission, today better at 1.3. Patient on hydrochlorothiazide 12.5 mg p.o. daily, Cardizem 120 mg p.o. daily, Synthroid 25 mg p.o. daily, continue Protonix and Carafate. Continue aspirin 81 mg p.o. daily. Continue to follow Cardiology input recommendation, follow a.m. labs. Ultrasound carotid mild in 10- thickening bilateral carotid arteries and their branches, bilateral ICA/CCA ratio is more than two, suggesting 50-69% stenosis. Results discussed with the patient, all questions answered. Patient on aspirin 81 mg p.o. daily and Eliquis 5 mg p.o. b.i.d. at home. 02/18 PATIENT IS SEEN AND EXAMINED AT BEDSIDE, CASE DISCUSSED WITH THE RN, NO ACUTE EVENTS OVERNIGHT, PATIENT DOING WELL, ALERT ORIENTED X3, DISCUSSED WITH CORE DIPPER, OKAY FOR THE PATIENT TO BE DISCHARGED HOME. HEMOGLOBIN 10.7, HEMATOCRIT 32.8. PATIENT TO FOLLOW UP WITH CARDIOLOGY AN OUTPATIENT. Fitness Leader(s): Cardiology and electrophysiology. Assessment/Plan: FINAL DIAGNOSES Palpitations, POA Uncontrolled hypertension, POA Bradycardia, POA (HR 50s bpm in ED) Uncontrolled hypertension, POA History of atrial fibrillation, diagnosed on 12/2021 History of PAD, s/p failed left femoral tibial bypass with perfusion revascularization of left leg June 2021 and right leg September 2021 EF 55-60% per echo on 12/17/2021 History of 50-65% stenosis on left internal carotid artery alert all per carotid Doppler on 01/20/2024 Anemia of chronic disease Acute kidney injury, GFR 38, (GFR 52 on 05/07/2024, GFR 44 on 02/12/2025) Acute on chronic kidney disease, GFR 38 Diabetes mellitus with hyperglycemia Proteinuria Hypothyroidism Obesity, BMI 32.9 Carotid artery disease, possible 50-69% stenosis Discharge Instructions: THE PATIENT TO FOLLOW UP WITH PRIMARY CARE PHYSICIAN WELL CORE DIPPER AND INSPECTOR RUBBER STAMP DIE AN OUTPATIENT. PATIENT TO RETURN TO HOSPITAL IF HIS CONDITION CHANGES. PATIENT AGREED WITH PLAN AND UNDERSTOOD THE INFORMATION PROVIDED. Home Medications: Active Scripts Colchicine (Colchicine) 0.6 Mg Tablet, 1 TAB PO BID for 7 Days, #14 TAB 0 Refills Prov:BRIDGET BALL MD 02/18/25 Pantoprazole Sodium (Protonix) 40 Mg Ectab, 1 TAB PO DAILY, #15 TAB 0 Refills Prov:BRIDGET BALL MD 02/17/25 Sucralfate (Sucralfate) 1 Gram Tablet, 1 TAB PO QID, #60 TAB 0 Refills MUST DISSOLVE IN WATER DO NOT CRUSH Prov:BRIDGET BALL MD 02/17/25 Reported Medications Dronedarone Hydrochloride (Multaq) 400 Mg Tablet, 1 TAB PO BID for 30 Days, #60 TAB 0 Refills 02/16/25 Hydralazine HCl (Hydralazine HCl) 50 Mg Tablet, 1 TAB PO TID for 30 Days, #90 TAB 0 Refills 02/16/25 Aspirin (Aspirin EC) 81 Mg Tablet.dr, 81 MG PO DAILY, TAB 02/12/25 Ezetimibe (Ezetimibe) 10 Mg Tablet, 10 MG PO HS, TAB 02/12/25 Hydrochlorothiazide (Hydrochlorothiazide) 12.5 Mg Tablet, 12.5 MG PO DAILY, TAB 02/12/25 Hydralazine HCl (Hydralazine HCl) 25 Mg Tablet, 25 MG PO [id number], TAB 02/12/25 Apixaban (Eliquis) 5 Mg Tablet, 5 MG PO BID, TAB 02/12/25 Famotidine (Famotidine) 20 Mg Tablet, 20 MG PO HS, TAB 02/12/25 Mv-Min/Folic/K1/Lycopen/Lutein (Centrum Silver Men Tablet) 300 Mcg-60 Mcg-600 Mcg-300 Mcg Tablet, 1 EACH PO DAILY, TAB 02/12/25 Linaclotide (Linzess) 145 Mcg Capsule, 145 MCG PO DAILY, CAP 02/12/25 Diltiazem HCl (Diltiazem ER) 120 Mg Capsule.er, 120 MG PO DAILY, CAP 02/12/25 Rosuvastatin Calcium (Rosuvastatin Calcium) 40 Mg Tablet, 40 MG PO HS, TAB 02/12/25 Nitroglycerin (Nitroglycerin) 0.4 Mg Tab.subl, 0.4 MG SL AD PRN for CHEST PAIN, TAB.SL 02/12/25 Levothyroxine Sodium (Levothyroxine Sodium) 25 Mcg Tablet, 25 MCG PO DAILY, TAB 12/07/19 Icosapent Ethyl (Vascepa) 1 Gm Capsule, 2 CAP PO BID, CAP 12/07/19 Sitagliptin Phosphate (Januvia) 100 Mg Tablet, 100 MG PO DAILY, TAB 12/07/19 Metformin HCl (Metformin HCl) 500 Mg Tablet, 1000 MG PO BID, TAB 12/07/19 Discontinued Reported Medications Dronedarone Hydrochloride (Multaq) 400 Mg Tablet, 400 MG PO BID, TAB 02/12/25 Glimepiride (Glimepiride) 4 Mg Tablet, 4 MG PO DAILY, TAB 12/07/19 Spironolactone (Aldactone) 50 Mg Tablet, 50 MG PO DAILY, TAB 12/07/19 Sennosides (Senna) 8.6 Mg Tablet, 4 TAB PO DAILY, TAB 12/07/19 Amlodipine Besylate (Amlodipine Besylate) 10 Mg Tablet, 10 MG PO DAILY, TAB 12/07/19 Losartan Potassium (Losartan Potassium) 100 Mg Tablet, 100 MG PO DAILY, TAB 12/07/19 Atorvastatin Calcium (Lipitor) 10 Mg Tablet, 10 MG PO HS, TAB 12/07/19 [vit d2] No Conflict Check, 85387 PO QWEEK 12/07/19 Discontinued Scripts Meclizine HCl (Meclizine HCl) 25 Mg Tablet, 25 MG PO TID PRN for DIZZINESS, #30 TAB 0 Refills Prov:LISA NICOLE MD 12/31/21 Apixaban (Eliquis) 5 Mg Tablet, 5 MG PO BID for 30 Days, #60 TAB 3 Refills Prov:JAZMYN CARCAMO MD 12/18/21 Time spent arranging discharge: 31-60 minutes KRYSTAL MCNEAL MD Feb 19, 2025 07:57
--- NOTE | 2025-02-19 20:34 | EKG ---
[facility] Test Date: 2025-02-18 Test Time: 06:38:19 Pat Name: TUAN GORDON [facility] Room: 226 1 Gender: M Res Habilitation Assistant: darcy : [id number] Requested By: BRIDGET BALL Order Number: [id number] Reading MD: Afshan Burk Measurements Intervals [place] Rate: 88 P: 63 [place]: 166 QRS: 88 QRSD: 96 T: 74 QT: 390 QTc: 470 Interpretive Statements Sinus rhythm Ventricular premature complex Compared to ECG 02/16/2025 06:03:14 Ventricular premature complex(es) now present Electronically Signed On 02-22-2025 12:38:38 CDT by Afshan Burk Please click the below link to view image of tracing.
[2025-02-23] MEDS ORDERED: AMIO200T73 PO (15:52)
== END 2025-02-18 15:50 | disposition home or self-care (01) ==
LOC: EDH 22:16 → EDHIP 02-16 00:23 → INTOOBSV 02-16 00:23 → EDHIP 02-16 00:45 → 2DH 02-16 12:46
PROVIDERS: ADMIT Internal Medicine; ATTEND Internal Medicine
DX: I48.91 Unspecified atrial fibrillation (principal); I12.9 Hypertensive chronic kidney disease with stage 1 through stage 4 chronic kidney disease, or unspecified chronic kidney disease; E11.22 Type 2 diabetes mellitus with diabetic chronic kidney disease; N18.9 Chronic kidney disease, unspecified; N17.9 Acute kidney failure, unspecified; D63.1 Anemia in chronic kidney disease; E03.9 Hypothyroidism, unspecified; E11.65 Type 2 diabetes mellitus with hyperglycemia; E66.9 Obesity, unspecified; E78.00 Pure hypercholesterolemia, unspecified; R00.2 Palpitations; R09.89 Other specified symptoms and signs involving the circulatory and respiratory systems; R00.1 Bradycardia, unspecified; Z68.32 Body mass index [BMI] 32.0-32.9, adult; Z85.038 Personal history of other malignant neoplasm of large intestine; Z95.5 Presence of coronary angioplasty implant and graft
CPT/HCPCS: 99284; 82550; 83735 ×5; 84484 ×2; 80048; 85025; 81001; 36415 ×4; 71045; 93005 ×3; 83036; 84443; 84100 ×2; 80053 ×3; 83880; 85027 ×5; 85610; 85730; 86850; 86900; 86901; 82948 ×8; 93880; 93656; 93657 ×2; 85347 ×8; G0378 ×26; C1894 ×2; C1732 ×3; A4649 ×2; C1760 ×3; C1730; C1766; J3010 ×3; J3490 ×5; J2720; J0360; J1644 ×3; J2250; J2704; J2405; J2371; J1815; 99285

== ENCOUNTER 2025-02-26 02:04 | Observation (INO) | payer OTHER, MEDICARE ==
[~2025-02-26] VITALS: Ht 170.2 cm; Wt 95.4 kg
[~2025-02-26 02:04] MED LIST changes: +AMIO200T73 PO; -DRON400T7 PO; +HYDR50TA37 PO
--- NOTE | 2025-02-26 02:22 | ERN ---
ED Note History of Present Illness Stated Complaint: C/O DIARRHEA WITH FAST HEART RATE Chief Complaint: Palpitations Time Seen by MD: 02:09 Dictation: PATIENT IS A 79-YEAR-OLD MALE COMING IN TODAY WITH COMPLAINTS OF TACHYCARDIA AND RAPID HEART RATE FOR THE LAST TWO DAYS WITH DIARRHEA. NO CHEST PAIN NO BACK PAIN NO SOB. NO NAUSEA VOMITING. HE IS STATUS POST A RECENT ABLATION FOR ATRIAL FIBRILLATION IN JANUARY 2025 BY . Allergies: Coded Allergies: No Known Drug Allergies (Unverified Allergy, Unknown, 12/07/19) Home Meds Active Scripts Amiodarone HCl (Amiodarone HCl) 200 Mg Tablet, 1 TAB PO BID, #60 TAB 3 Refills Prov:BRIDGET BALL MD 02/23/25 Reported Medications Hydralazine HCl (Hydralazine HCl) 50 Mg Tablet, 1 TAB PO TID for 30 Days, #90 TAB 0 Refills 02/16/25 Aspirin (Aspirin EC) 81 Mg Tablet.dr, 81 MG PO DAILY, TAB 02/12/25 Ezetimibe (Ezetimibe) 10 Mg Tablet, 10 MG PO HS, TAB 02/12/25 Hydrochlorothiazide (Hydrochlorothiazide) 12.5 Mg Tablet, 12.5 MG PO DAILY, TAB 02/12/25 Hydralazine HCl (Hydralazine HCl) 25 Mg Tablet, 25 MG PO [id number], TAB 02/12/25 Apixaban (Eliquis) 5 Mg Tablet, 5 MG PO BID, TAB 02/12/25 Famotidine (Famotidine) 20 Mg Tablet, 20 MG PO HS, TAB 02/12/25 Mv-Min/Folic/K1/Lycopen/Lutein (Centrum Silver Men Tablet) 300 Mcg-60 Mcg-600 Mcg-300 Mcg Tablet, 1 EACH PO DAILY, TAB 02/12/25 Linaclotide (Linzess) 145 Mcg Capsule, 145 MCG PO DAILY, CAP 02/12/25 Diltiazem HCl (Diltiazem ER) 120 Mg Capsule.er, 120 MG PO DAILY, CAP 02/12/25 Rosuvastatin Calcium (Rosuvastatin Calcium) 40 Mg Tablet, 40 MG PO HS, TAB 02/12/25 Nitroglycerin (Nitroglycerin) 0.4 Mg Tab.subl, 0.4 MG SL AD PRN for CHEST PAIN, TAB.SL 02/12/25 Levothyroxine Sodium (Levothyroxine Sodium) 25 Mcg Tablet, 25 MCG PO DAILY, TAB 12/07/19 Icosapent Ethyl (Vascepa) 1 Gm Capsule, 2 CAP PO BID, CAP 12/07/19 Sitagliptin Phosphate (Januvia) 100 Mg Tablet, 100 MG PO DAILY, TAB 12/07/19 Metformin HCl (Metformin HCl) 500 Mg Tablet, 1000 MG PO BID, TAB 12/07/19 Discontinued Reported Medications Dronedarone Hydrochloride (Multaq) 400 Mg Tablet, 1 TAB PO BID for 30 Days, #60 TAB 0 Refills 02/16/25 Discontinued Scripts Colchicine (Colchicine) 0.6 Mg Tablet, 1 TAB PO BID for 7 Days, #14 TAB 0 Refills Prov:BRIDGET BALL MD 02/18/25 Pantoprazole Sodium (Protonix) 40 Mg Ectab, 1 TAB PO DAILY, #15 TAB 0 Refills Prov:BRIDGET BALL MD 02/17/25 Sucralfate (Sucralfate) 1 Gram Tablet, 1 TAB PO QID, #60 TAB 0 Refills MUST DISSOLVE IN WATER DO NOT CRUSH Prov:BRIDGET BALL MD 02/17/25 Past Medical History Past Medical History: Diabetes-Type II, High Cholesterol, Heart Disease, Hype rtension Additional Past Medical Hx: COLON CA (IN REMISSION) Surgical History: Other Surgical History Other: ABLATION Social History: Lives with family, Other RN Note Reviewed/Agreed w/PFSH: Yes Review of System Dictation CONSTITUTIONAL: NEGATIVE EXCEPT FOR HPI HEAD/FACE: NEGATIVE EXCEPT FOR HPI EENT: NEGATIVE EXCEPT FOR HPI RESPIRATORY: NEGATIVE EXCEPT FOR HPI TACHYCARDIA GASTROINTESTINAL/ABDOMINAL: NEGATIVE EXCEPT FOR HPI DIARRHEA GENITOURINARY: NEGATIVE EXCEPT FOR HPI MUSCULOSKELETAL: NEGATIVE EXCEPT FOR HPI INTEGUMENTARY: NEGATIVE EXCEPT FOR HPI NEUROLOGICAL/PSYCH: NEGATIVE EXCEPT FOR HPI HEMATOLOGIC/LYMPHATIC: NEGATIVE EXCEPT FOR HPI ALL SYSTEMS NEGATIVE, EXCEPT NOTED ABOVE. 13 POINT REVIEW OF SYSTEMS ASSESSED AND ALL NEGATIVE EXCEPT FOR ABOVE. Initial Vital Sign VS Vital Signs Date Time Temp Pulse Resp B/P (MAP) Pulse Ox O2 Delivery O2 Flow Rate FiO2 02/26/25 02:10 97.3 141 20 125/89 98 Room Air 02/26/25 02:33 0 21 Physical Exam Dictation VITAL SIGNS REVIEWED GENERAL APPEARANCE: ALERT, ORIENTED X 3, NO ACUTE DISTRESS, WELL DEVELOPED, NOURISHED. HEAD AND FACE: NON-TRAUMATIC. EYES: PERRL, PINK CONJUNCTIVAS, EYELID NO TRAUMA, ANTERIOR CHAMBER WITH ARCUS SENILIS. EARS: PINNAS INTACT AND NO SIGNS OF TRAUMA OR ERYTHEMA EAR CANALS CLEAR AND NO DISCHARGE TM NO ERYTHEMA NOSE: NO DISCHARGE, NO BLEEDING. OROPHARYNX: MOUTH NORMAL, TONGUE PINK, PHARYNX CLEAR,NO ERYTHEMA, TONSILS NO EXUDATES, NO ABSCESSES NOTED, MUCOUS MEMBRANE MOIST NECK: SUPPLE, NON-TENDER, NO THYROMEGALY, NO MASSES, NO JVD, NO BRUITS BREAST:DEFERRED CHEST:NO TENDERNESS, NO CREPITUS, NO PARADOXICAL MOVEMENT, NO RETRACTIONS LUNGS:CLEAR, WELL-VENTILATED, SYMMETRIC, NO RALES, NO WHEEZING, NO RHONCHI, NO STRIDOR, GOOD BREATH SOUNDS BILATERALLY HEART: TACHYCARDIC AND REGULAR., NO MURMUR, NO GALLOPS VASCULAR: TRACE PERIPHERAL EDEMA, ABDOMEN: SOFT, POSITIVE BOWEL SOUNDS, NONDISTENDED, NO GUARDING, NONTENDER, NO REBOUND, NO MASSES NO HEPATOMEGALY, NO SPLENOMEGALY, NO GIVENS'S SIGN, NO HERNIAS. RECTAL: DEFERRED GENITAL: DEFERRED NEUROLOGICAL: NORMAL SPEECH, MOTOR FUNCTION INTACT, SENSORY FUNCTION INTACT MUSCULOSKELETAL: NECK NONTENDER, FULL RANGE OF MOTION, BACK NONTENDER, FULL RANGE OF MOTION, EXTREMITIES: NONTENDER, FULL RANGE OF MOTION SKIN: COLOR PINK, DRY, NO TURGOR, NO RASH, NO LACERATIONS, NO ABRASIONS, NO CONTUSIONS. LYMPHATIC: DEFERRED Results (Laboratory/Radiology) Laboratory/Radiology Laboratory Tests Test 02/26/25 02:21 02/26/25 02:27 White Blood Count 6.3 K/uL (4.8-10.8) Red Blood Count 3.45 MIL/uL (4.50-6.20) L Hemoglobin 10.6 g/dL (14.0-18.0) L Hematocrit 32.0 % (42-54) L Mean Corpuscular Volume 92.8 fL (79-99) Mean Corpuscular Hemoglobin 30.7 pg (27.0-33.0) Mean Corpuscular Hemoglobin Concent 33.1 g/dL (32.0-36.0) Red Cell Distribution Width 14.3 % (11.0-15.5) Platelet Count 218 K/uL (130-400) Mean Platelet Volume 10.3 fL (7.5-10.5) Immature Granulocyte % (Auto) 0.6 % (0-1) Neutrophils (%) (Auto) 65.7 % (40.0-77.0) Lymphocytes (%) (Auto) 19.3 % (21.0-51.0) L Monocytes (%) (Auto) 10.4 % (3.0-13.0) Eosinophils (%) (Auto) 3.5 % (0.0-8.0) Basophils (%) (Auto) 0.5 % (0.0-5.0) Neutrophils # (Auto) 4.2 K/uL (1.8-7.7) Lymphocytes # (Auto) 1.2 K/uL (1.0-4.8) Monocytes # (Auto) 0.7 K/uL (0.1-1.0) Eosinophils # (Auto) 0.22 K/uL (0.00-0.70) Basophils # (Auto) 0.03 K/uL (0.00-0.20) Absolute Immature Granulocyte (auto 0.04 K/uL (0-1) Nucleated Red Blood Cells 0.0 % (0.0-0.19) Sodium Level 139 mmol/L (136-145) Potassium Level 3.5 mmol/L (3.5-5.1) Chloride Level 105 mmol/L (101-111) Carbon Dioxide Level 25 mmol/L (21-32) Blood Urea Nitrogen 17 mg/dL (7-18) Creatinine 1.3 mg/dL (0.5-1.3) Glomerular Filtration Rate Calc 56 mL/min (>90) Random Glucose 122 mg/dL (70-105) H Lactic Acid Level 1.5 mmol/L (0.8-2.5) Total Calcium 8.4 mg/dL (8.5-10.1) L Magnesium Level 1.70 mg/dL (1.80-2.40) L Troponin I High Sensitivity 72 ng/L (4-75) B-Type Natriuretic Peptide 630 pg/mL (0-100) H Influenza Type A Antigen Negative For Type A Influenza Type B Antigen Negative For Type B SARS-CoV-2, RNA, NAAT NEGATIVE SARS CoV-2 Labs Reviewed?: Yes EKG Comment: EKG SINUS TACHYCARDIA/HEART RATE 136/RIGHT AXIS DEVIATION/QT INTERVAL 535 MILLISECONDS. ED Course ED Course Orders Procedure Category Date Status Time B-Type Natriuretic LAB 02/26/25 Complete Peptide 02:15 Cbc With Differential LAB 02/26/25 Complete 02:15 Chest 1vw RAD 02/26/25 Resulted 02:15 12 Lead Ekg Tracing- EKG 02/26/25 Complete Technical 02:15 Magnesium LAB 02/26/25 Complete 02:15 Troponin I High LAB 02/26/25 Complete Sensitivity 02:15 Basic Metabolic Panel LAB 02/26/25 Complete 02:15 0.9%Nacl 1000ml (Ns PHA 02/26/25 Complete 1000ml) 02:30 Blood Cult ANJANA 02/26/25 Logged 02:24 Lactic Acid LAB 02/26/25 Complete 02:24 Covid Rna Naat LAB 02/26/25 Complete 02:49 Influenza Type A & B, LAB 02/26/25 Complete Rapid 02:49 Metoprolol Tartrate PHA 02/26/25 Complete (Lopressor) 03:30 Current Medications Medications (Trade) Dose Ordered Sig/Lucas Route PRN Reason Start Time Stop Time Status Last Admin Dose Admin Metoprolol Tartrate (loprESSOR) 5 mg ONCE ONCE IV 02/26/25 03:30 02/26/25 03:31 DC 02/26/25 03:06 Sodium Chloride 1,000 ml @ 0 mls/hr ONCE ONCE IV 02/26/25 02:30 02/26/25 02:31 DC 02/26/25 02:30 Vital Signs Date Time Temp Pulse Resp B/P (MAP) Pulse Ox O2 Delivery O2 Flow Rate FiO2 02/26/25 03:06 115 02/26/25 02:59 98.8 111 20 160/60 98 Room Air* 0 21 02/26/25 02:33 98.8 137 20 155/66 99 Room Air* 0 21 02/26/25 02:10 97.3 141 20 125/89 98 Room Air Medical Decision Making MDM PATIENT IS A 79-YEAR-OLD MALE COMING IN TODAY WITH COMPLAINTS OF TACHYCARDIA AND RAPID HEART RATE FOR THE LAST TWO DAYS WITH DIARRHEA. NO CHEST PAIN NO BACK PAIN NO SOB. NO NAUSEA VOMITING. HE IS STATUS POST A RECENT ABLATION FOR ATRIAL FIBRILLATION IN JANUARY 2025 BY . Patient said that he has prescription for amiodarone 200 mg daily, I reviewed the prescriptions sent from his last admission was for 200 mg twice a day. Differential diagnosis: Atrial fibrillation, sinus tachycardia, anxiety EKG was performed and showed a sinus tachycardia heart rate 136. One dose of the metoprolol 5 mg was given, heart rate decreased to 80s Patient is hemodynamically stable. No chest pain. Plan is to admit the patient to the medical service for further cardiology input. DX & DISP Disposition: Observation Departure Impression: Primary Impression: Sinus tachycardia Additional Impressions: History of cardiac ablation for atrial fibrillation, Palpitations, Drug dose changed Condition: Stable Referrals: JOVANY TABARES MD (PCP) ÁNGEL BRASHER NP Feb 26, 2025 02:22 KIMBERLY DOCKERY MD Feb 26, 2025 04:04
[2025-02-26 02:29] LABS: IMMATURE GRANULOCYTE ABSOLUTE 0.04 K/uL (0-1); NUCLEATED RED BLOOD CELLS 0.0 % (0.0-0.19); PLATELET COUNT (AUTO) 218 K/uL (130-400); RED BLOOD CELL COUNT(AUTO) 3.45 MIL/uL (4.50-6.20); RED CELL DISTRIBUTION WIDTH 14.3 % (11.0-15.5); WHITE BLOOD COUNT (AUTO) 6.3 K/uL (4.8-10.8)
[2025-02-26] MEDS: 0.9%NACL 1000ML 1,000 ML IV ONE (02:30)
[2025-02-26 02:47] LABS: CREATININE 1.3 mg/dL (0.5-1.3); GLOMERULAR FILTR. RATE CALC 56.0 mL/min (>90); GLUCOSE,RANDOM 122.0 mg/dL (70-105); SODIUM SERUM 139.0 mmol/L (136-145); UREA NITROGEN, BLOOD 17.0 mg/dL (7-18)
--- NOTE | 2025-02-26 02:58 | EKG ---
[facility] Test Date: 2025-02-26 Test Time: 02:18:23 Pat Name: TUAN GORDON Department: [facility]H Room: ED Gender: M Malter Operator: [id number] : 1945 Requested By: ÁNGEL BRASHER Order Number: [id number] Reading MD: Herminio Leal Measurements Intervals [place] Rate: 136 P: 0 MO: 99 QRS: 98 QRSD: 90 T: -17 QT: 355 QTc: 535 Interpretive Statements Sinus tachycardia Right axis deviation Prolonged QT interval Compared to ECG 02/20/2025 10:15:14 No significant changes Electronically Signed On 02-26-2025 13:41:29 CDT by Herminio Leal Please click the below link to view image of tracing.
[2025-02-26 03:07] LABS: SARS-CoV-2, RNA, NAAT NEGATIVE SARS CoV-2 (NEGATIVE)
[2025-02-26 03:14] LABS: INFLUENZA TYPE A Negative For Type A (NEGATIVE); INFLUENZA TYPE B Negative For Type B (NEGATIVE)
--- NOTE | 2025-02-26 03:38 | HMCIMG ---
EXAM: CR Chest, 1 view CLINICAL HISTORY: Shortness of breath. Tachycardia. COMPARISON: Chest radiograph dated 02/20/2025. FINDINGS: The lungs show no infiltrates or other acute findings. No pleural effusion or pneumothorax. The cardiomediastinal silhouette is within normal limits. No acute osseous abnormality. Old healed fracture of the left seventh rib. IMPRESSION: No acute cardiopulmonary process is evident. Compared to the prior study, there is no significant interval change. /[place]
--- NOTE | 2025-02-26 05:24 | HP ---
[facility] HISTORY [facility] PHYSICAL Date of Service: Feb 26, 2025 Time of Service: 04:46 PCP: Lowell Foster HISTORY OF PRESENT ILLNESS: This is a 79-year-old male with past medical history of diabetes, hypertension, hyperlipidemia, hypothyroidism atrial fibrillation on Eliquis with recent cardiac ablation( 02/17/2025 by ), peripheral arterial disease status post , failed left femoral tibial bypass with perfusion revascularization of left leg on June 2021 and right leg September 2021 , left carotid artery stenosis chronic kidney disease and obesity who presents to the ED for complaints of palpitation and diarrhea started two days ago.Patient reports he has been in and out of the hospital every month since September for similar problem and recently he had a cardiac ablation done performed by Dr. Abraham and was discharged home with prescription for Amiodarone but has not been able to take his meds until yesterday around 2 pm he said .Patient decided to come to the ED because his palpitation has not improved even after taking the medicine he said. EKG upon ER arrival result revealed sinus tachycardia heart rate 136 with right axis deviation prolonged QT interval. Seen and examined patient in the ER awake alert and coherent,appears comfortable.Patient denies fever,nausea,vomiting,cough,shortness of breath ,abdominal pain and chest pain. Vital signs temperature 98.8, heart rate 111, blood pressure 160/60 saturation 98% on room air. Labs: Hemoglobin 10, hematocrit 32, platelet count 218sodium 139, potassium 3.5, chloride 105, CO2 25 BUN 17, creatinine 1.3, GFR 56 lactic acid 1.5 total calcium 8.4 magnesium 1.7 Troponin 72 BNP 630 has a type a and B negative SARs COVID negative CXR result revealed no acute cardiopulmonary process is evident. While in the ER patient received1 L NS bolus and metoprolol5 mg IV. We will admit patient for further medical management. REVIEW OF SYSTEMS CONSTITUTIONAL: Denies fevers, chills, or night sweats. No unintentional weight loss reported. NEUROLOGICAL: Denies headache, amaurosis fugax, motor weakness, sensory deficit, vertigo/spinning sensation, gait abnormalities, or tremors. ENT: No hearing loss, otalgia, otorrhea, rhinitis, rhinorrhea, hoarseness, or sore throat. CARDIOVASCULAR: Complaints of palpitation Denies any exertional angina, dyspnea on exertion, orthopnea, paroxysmal nocturnal dyspnea, life-threatening arrhythmias, claudication. PULMONARY: Denies any shortness of breath, cough, phlegm/sputum, hemoptysis, pleuritic chest pain. SLEEP: Denies morning headaches, daytime somnolence or napping. Denies difficulty falling asleep, staying asleep, waking from sleep. Denies knowledge of snoring. GASTROINTESTINAL: Complaints of diarrhea Denies any type of dysphagia to either liquids or solids. Denies nausea, vomiting, pyrosis, early satiety, abdominal pain, constipation, or changes in stool consistency or caliber. Denies coffee-ground emesis, hematemesis, hematochezia, or melanotic stools. GENITOURINARY: Denies frequency, urgency, nocturia, hematuria or incontinence (Storage/Irritative symptoms.) Low urinary stream, straining to void, urinary intermittency or hesitancy, splitting of the voiding stream, terminal dribbling. ENDOCRINOLOGIC: Denies polyuria, polydipsia, polyphagia or heat/cold intolerances. HEMATOLOGIC: Denies thrombophilia/previous clots, or coagulopathy/bleeding disorders. ONCOLOGIC: Denies personal history of malignancy. DERMATOLOGIC: Denies rashes or pruritus. PSYCHIATRIC: Denies any suicidal or homicidal ideation. Denies hallucinations. PAST MEDICAL HISTORY: [diabetes, hypertension, hyperlipidemia, hypothyroidism , atrial fibrillation on Eliquis , peripheral arterial disease , left carotid artery stenosis chronic , kidney disease and obesity ] PAST SURGICAL HISTORY: [Cardiac ablation status post failed left femoral tibial bypass with perfusion revascularization of the left leg on June 2021 ] PAST SOCIAL HISTORY: [ Patient lives alone patient denies alcohol tobacco and recreational drug] FAMILY HISTORY: [Hypertension, diabetes, stroke, cardiovascular disease, cancer and immunosuppre ssion ] Coded Allergies: No Known Drug Allergies (Unverified Allergy, Unknown, 12/07/19) PHYSICAL EXAM GENERAL APPEARANCE: The patient is awake, alert, and oriented, in no acute cardiopulmonary distress. NEUROLOGICAL: Cranial nerves II-XII grossly intact. Motor is 5/5 in bilateral upper and lower extremities proximal to distal. No sensory deficits. HEENT: Face is symmetric. Pupils are equal and reactive. Extraocular movements are intact. NECK: Supple. No JVD. No thyromegaly. No submental, submandibular, pre- /postauricular, occipital or supraclavicular lymphadenopathy. CHEST: Normal chest expansion. No Telemetry. LUNGS: Absence of any rales, rhonchi or any wheezing. CARDIOVASCULAR: Regular. S1 and S2 normal. No appreciable rubs, murmurs or gallops. ABDOMEN: Soft, nontender, and nondistended. There is no rebound, voluntary guarding, or rigidity. : Deferred. No Werner. EXTREMITIES: Trace of edema to bilateral lower extremities SKIN: No skin breakdown. Vital Sign (Last 24 Hours) 02/26/25 02/26/25 02:59 03:06 Temp 98.8 Pulse 115 Resp 20 B/P (MAP) 160/60 Pulse Ox 98 O2 Delivery Room Air* O2 Flow Rate 0 FiO2 21 LABS: Laboratory: Test 02/26/25 02:27 02/26/25 02:21 Range/Units Influenza Type A Antigen Negative For Type A NEGATIVE Influenza Type B Antigen Negative For Type B NEGATIVE SARS-CoV-2, RNA, NAAT NEGATIVE SARS CoV-2 NEGATIVE White Blood Count 6.3 4.8-10.8 K/uL Red Blood Count 3.45 L 4.50-6.20 MIL/uL Hemoglobin 10.6 L 14.0-18.0 g/dL Hematocrit 32.0 L 42-54 % Mean Corpuscular Volume 92.8 79-99 fL Mean Corpuscular Hemoglobin 30.7 27.0-33.0 pg Mean Corpuscular Hemoglobin Concent 33.1 32.0-36.0 g/dL Red Cell Distribution Width 14.3 11.0-15.5 % Platelet Count 218 130-400 K/uL Mean Platelet Volume 10.3 7.5-10.5 fL Immature Granulocyte % (Auto) 0.6 0-1 % Neutrophils (%) (Auto) 65.7 40.0-77.0 % Lymphocytes (%) (Auto) 19.3 L 21.0-51.0 % Monocytes (%) (Auto) 10.4 3.0-13.0 % Eosinophils (%) (Auto) 3.5 0.0-8.0 % Basophils (%) (Auto) 0.5 0.0-5.0 % Neutrophils # (Auto) 4.2 1.8-7.7 K/uL Lymphocytes # (Auto) 1.2 1.0-4.8 K/uL Monocytes # (Auto) 0.7 0.1-1.0 K/uL Eosinophils # (Auto) 0.22 0.00-0.70 K/uL Basophils # (Auto) 0.03 0.00-0.20 K/uL Absolute Immature Granulocyte (auto 0.04 0-1 K/uL Nucleated Red Blood Cells 0.0 0.0-0.19 % Sodium Level 139 136-145 mmol/L Potassium Level 3.5 3.5-5.1 mmol/L Chloride Level 105 101-111 mmol/L Carbon Dioxide Level 25 21-32 mmol/L Blood Urea Nitrogen 17 7-18 mg/dL Creatinine 1.3 0.5-1.3 mg/dL Glomerular Filtration Rate Calc 56 >90 mL/min Random Glucose 122 H 70-105 mg/dL Lactic Acid Level 1.5 0.8-2.5 mmol/L Total Calcium 8.4 L 8.5-10.1 mg/dL Magnesium Level 1.70 L 1.80-2.40 mg/dL Troponin I High Sensitivity 72 4-75 ng/L B-Type Natriuretic Peptide 630 H 0-100 pg/mL DIAGNOSTICS / RADIOLOGY: [ ] ASSESSMENT: Sinus tachycardia POA Atrial fibrillation on chronic anticoagulation with recent cardiac ablation POA Hypertension POA Hyperlipidemia POA Hypothyroidism POA Chronic kidney disease POA Diabetes type 2 POA Possible diastolic heart failure (EF 57% per echo on 02/22/2025 bnp 630 and edema )POA Peripheral arterial disease on bilateral lower extremity POA Left carotid artery stenosis POA Obesity POA Diarrhea unspecified POA PLAN: We will admit patient in medical telemetry We will start on heart healthy diet We will start famotidine 20 mg p.o. daily We will replace electrolytes as needed per protocol We will start on insulin sliding scale AC & HS with hypoglycemia protocol We will add prn medication for fever,pain,cough , nausea and vomiting We will reconcile home meds once medlist available We will seek Cardiology consultation We will request case management service Restrict fluid 1.5 L per day Daily weight and strict I&O We will request labs in am Further orders to follow depending on above results Case discussed with attending physician and came up with above treatment and plan of care. ADVANCED CARE PLANNING 1. Which of the following were discussed? Hospice Care - No Therapeutic options - Yes Advance Directives - No Other discussions - 2. Discussed with who? Patient 3. Voluntary nature of this service was explained to the patient? Yes 4. Amount of time spent - __24 min 5. Reviewed by Physician? (if this service was performed by NPP) Yes Patient seen and examined by me. Agree with note by ROTARY DRUM DYER SEE ADDITIONAL ORDERS PER CHART DISCUSSED WITH NURSING STAFF ESTRADA LO FUR MIXER Feb 26, 2025 05:24
[2025-02-26] MEDS ORDERED: DEXTROSE 50%-WATER 50 ML DISP.SYRIN IV PRN (05:30)
[2025-02-26] MEDS ORDERED: GLUCAGON 1MG KIT 1 MG ML IM PRN (05:30)
[2025-02-26] MEDS ORDERED: PoTASSium chl 10% ELIXIR 20MEQ 20 MEQ/15 ML UDCUP PO PRN (05:30)
[2025-02-26 05:53] LABS: APPEARANCE,URINE CLEAR (CLEAR); GLUCOSE, URINE (UA) NEGATIVE (NEGATIVE); LEUKOCYTE ESTERASE ,URINE NEGATIVE Leu/uL (NEGATIVE); NITRATE,URINE NEGATIVE (NEGATIVE); OCCULT BLOOD,URINE NEGATIVE (NEGATIVE); SQUAMOUS EPITHELIAL CELL,UR RARE /HPF (0-2)
[2025-02-26] MEDS: ASPIRIN 81 MG EC TAB PO SCH (08:24)
[2025-02-26] MEDS: FAMOTIDINE 20MG TAB PO SCH (08:25)
[2025-02-26] MEDS: MAGNESIUM 2GM PREMIX 50ML 50 ML IV PRN (08:34)
[2025-02-26] MEDS: PoTASSium chloRIDE 20MEQ ER 20 MEQ ERTAB PO PRN (08:34)
--- NOTE | 2025-02-26 10:31 | NUR ---
DCP: HOME Pt reports he lives alone in his apt at [facility]. pt reports he is able to bath dress and groom self on his own. He has a provider 4hrs a day to assist with home management, cooking meals and laundry. Pt able to drive self as needed. P uses is walker with seat to ambulate outside of home. No HH or HD services. PCP is Lowell Foster and uses [facility] for rx needs. P denies need for SNF wants to return home a dc Addendum: 02/26/25 at 1036 by MARCELO JIMENEZ Amended: Links added.
--- NOTE | 2025-02-26 14:13 | NUR ---
DR CR CARDIOLOGY AT BEDSIDE FOR CARDIOLOGY CONSULT
--- NOTE | 2025-02-26 15:45 | CONS ---
Cardiac Consult Note CONSULT NOTE DATE OF SERVICE: Feb 26, 2025 at 02:04 REFERRING PROVIDER: MILAN CR MD REASON FOR CONSULT: AFib with rapid ventricular response HPI: 79-year-old patient well known to [facility] heart [facility] who had had a rec ent ablation done involving atrial fibrillation with electrophysiology here at [facility] on February 17 and was then prescribed amiodarone which she had not been taking or has been I am unable to turkey picker. Patient started feeling more issues related to palpitations in his started to come in after initially restarting his are taking the amiodarone for proximally 1 day. Patient presented in atrial fibrillation with rapid ventricular response although it was also described as sinus tachycardia. Patient has a has an extensive coronary artery disease history as well as a PID history. Upon my arrival here today patient's heart rate was in the 70s and 80s and an EKG did demonstrate sinus rhythm but I do not see well-defined P waves. There also appeared to be some irregularity to it. Patient currently denies any chest pain pressure tightness he denies any shortness of breath. Has been paroxysmal in the past. Patient has a history of preserved left ventricular function. He states he has been taking his other medications specifically diltiazem and 120 mg once daily. He has been taking his amiodarone which he just initiated. He has been compliant with his apixaban. Patient has a history of significant coronary artery disease and a very high calcium score after he had an angiogram done in September of 2024 in which he was told he would benefit most from aggressive medical therapy. He currently denies any chest pain pressure or tightness. ROS: No fever, headache, chest pain, abdominal pain, nausea, vomiting, or diarrhea. PMHX: Coronary artery disease multivessel severely calcified managed medically after coronary angiography September 2024 Hypertension Dyslipidemia Diabetes mellitus type 2 Paroxysmal atrial fibrillation Chronic anticoagulation with Eliquis History of peripheral arterial disease with prior femoral popliteal bypass 2019 and multiple interventions done subsequent to that. PSHX: Femoral popliteal bypass January 09, 2020 [facility] FH: Heart disease Hypertension SOCIAL: Currently not smoking PHYSICAL EXAMINATION: GENERAL: No acute distress. Appears stated age HEENT: Normocephalic, atraumatic. CARDIAC: Positive S1 and S2. Irregularly irregular LUNGS: Clear to auscultation bilaterally. ABDOMEN: Bowel sounds present, soft, nontender. EXTREMITIES: No edema bilaterally. NEUROLOGIC: Cranial nerves 2-12 grossly intact. PSYCHIATRIC: Calm. ASSESSMENT: History of paroxysmal atrial fibrillation with recent atrial fibrillation ablation done February 17, 2025 History of multivessel coronary artery disease treated medically Diabetes Diabetic angiopathy Dyslipidemia Hypothyroid state PLAN: At this time we will reinitiate diltiazem and 120 mg we will give this twice daily and see how he tolerates it. We will continue with amiodarone. We will keep patient on telemetry. We will have review EKGs and strips with final disposition to be made tomorrow. We will continue to monitor patient overnight. All questions have been answered. Vital Signs 02/26/25 02/26/25 02/26/25 02/26/25 02:10 02:33 02:59 03:06 Temp 97.3 98.8 98.8 Pulse 141 137 111 115 Resp 20 20 20 B/P (MAP) 125/89 155/66 160/60 Pulse Ox 98 99 98 O2 Delivery Room Air Room Air* Room Air* O2 Flow Rate 0 0 FiO2 21 21 02/26/25 02/26/25 02/26/25 02/26/25 06:19 07:26 08:30 11:36 Temp 98.8 98.8 98.8 98.4 Pulse 98 68 124 70 Resp 20 20 20 18 B/P (MAP) 125/52 146/77 156/66 165/70 Pulse Ox 98 98 98 98 O2 Delivery Room Air* Room Air* Room Air* Room Air* O2 Flow Rate 0 0 0 0 FiO2 21 21 21 21 02/26/25 13:30 Temp 98.4 Pulse 70 Resp 14 B/P (MAP) 167/109 Pulse Ox 98 O2 Delivery Room Air* O2 Flow Rate 0 FiO2 21 Laboratory Tests Test 02/26/25 02:21 02/26/25 02:27 02/26/25 05:35 02/26/25 08:17 White Blood Count 6.3 K/uL (4.8-10.8) Red Blood Count 3.45 MIL/uL (4.50-6.20) Hemoglobin 10.6 g/dL (14.0-18.0) Hematocrit 32.0 % (42-54) Mean Corpuscular Volume 92.8 fL (79-99) Mean Corpuscular Hemoglobin 30.7 pg (27.0-33.0) Mean Corpuscular Hemoglobin Concent 33.1 g/dL (32.0-36.0) Red Cell Distribution Width 14.3 % (11.0-15.5) Platelet Count 218 K/uL (130-400) Mean Platelet Volume 10.3 fL (7.5-10.5) Immature Granulocyte % (Auto) 0.6 % (0-1) Neutrophils (%) (Auto) 65.7 % (40.0-77.0) Lymphocytes (%) (Auto) 19.3 % (21.0-51.0) Monocytes (%) (Auto) 10.4 % (3.0-13.0) Eosinophils (%) (Auto) 3.5 % (0.0-8.0) Basophils (%) (Auto) 0.5 % (0.0-5.0) Neutrophils # (Auto) 4.2 K/uL (1.8-7.7) Lymphocytes # (Auto) 1.2 K/uL (1.0-4.8) Monocytes # (Auto) 0.7 K/uL (0.1-1.0) Eosinophils # (Auto) 0.22 K/uL (0.00-0.70) Basophils # (Auto) 0.03 K/uL (0.00-0.20) Absolute Immature Granulocyte (auto 0.04 K/uL (0-1) Nucleated Red Blood Cells 0.0 % (0.0-0.19) Sodium Level 139 mmol/L (136-145) Potassium Level 3.5 mmol/L (3.5-5.1) Chloride Level 105 mmol/L (101-111) Carbon Dioxide Level 25 mmol/L (21-32) Blood Urea Nitrogen 17 mg/dL (7-18) Creatinine 1.3 mg/dL (0.5-1.3) Glomerular Filtration Rate Calc 56 mL/min (>90) Random Glucose 122 mg/dL (70-105) Lactic Acid Level 1.5 mmol/L (0.8-2.5) Total Calcium 8.4 mg/dL (8.5-10.1) Magnesium Level 1.70 mg/dL (1.80-2.40) Troponin I High Sensitivity 72 ng/L (4-75) B-Type Natriuretic Peptide 630 pg/mL (0-100) Influenza Type A Antigen Negative For Type A Influenza Type B Antigen Negative For Type B SARS-CoV-2, RNA, NAAT NEGATIVE SARS CoV-2 Urine Color COLORLESS (YELLOW) Urine Appearance CLEAR (CLEAR) Urine pH 5.5 (5.0-8.0) Urine Specific [place] 1.008 (1.001-1.031) Urine Protein 30 mg/dL (NEGATIVE) Urine Glucose (UA) NEGATIVE mg/dL (NEGATIVE) Urine Ketones NEGATIVE mg/dL (NEGATIVE) Urine Occult Blood NEGATIVE (NEGATIVE) Urine Nitrate NEGATIVE (NEGATIVE) Urine Bilirubin NEGATIVE mg/dL (NEGATIVE) Urine Urobilinogen 0.2 mg/dL (0.2-1.0) Urine Leukocyte Esterase NEGATIVE Crista/uL Urine RBC 0-1 /HPF (0-1) Urine WBC None /HPF (0-1) Urine Squamous Epithelial Cells RARE /HPF (0-2) Urine Bacteria None /HPF (None Seen) Whole Blood Glucose 120 MG/DL (70-110) Test 02/26/25 11:33 Whole Blood Glucose 137 MG/DL (70-110) Current Medications Medications Dose Ordered Sig/Lucas Route PRN Reason Start Time Stop Time Status Last Admin Sodium Chloride 1,000 ml @ 0 mls/hr ONCE ONCE IV 02/26/25 02:30 02/26/25 02:31 DC 02/26/25 02:30 Metoprolol Tartrate 5 mg ONCE ONCE IV 02/26/25 03:30 02/26/25 03:31 DC 02/26/25 03:06 Famotidine 20 mg DAILY PO 02/26/25 09:00 03/28/25 08:59 02/26/25 08:25 Insulin Human Regular INSULIN SLIDING SCAL... ACHS SQ 02/26/25 07:30 03/28/25 07:29 Amiodarone HCl 200 mg BID PO 02/26/25 09:00 03/28/25 08:59 02/26/25 08:29 Apixaban 5 mg BID PO 02/26/25 09:00 03/28/25 08:59 02/26/25 08:25 Aspirin 81 mg DAILY PO 02/26/25 09:00 03/28/25 08:59 02/26/25 08:24 Levothyroxine Sodium 25 mcg DAILY PO 9/12/25 09:00 03/28/25 08:59 02/26/25 08:24 Diltiazem HCl 120 mg DAILY PO 02/26/25 09:00 03/28/25 08:59 02/26/25 08:29 Hydrochlorothiazide 12.5 mg DAILY PO 02/26/25 09:00 03/28/25 08:59 02/26/25 08:25 Atorvastatin Calcium 80 mg HS PO 02/26/25 21:00 03/28/25 20:59 Hydralazine HCl 25 mg Q8H PO 02/26/25 06:00 03/28/25 05:59 02/26/25 14:07 Active Scripts Amiodarone HCl (Amiodarone HCl) 200 Mg Tablet, 1 TAB PO BID, #60 TAB 3 Refills Prov:BRIDGET BALL MD 02/23/25 Reported Medications Hydralazine HCl (Hydralazine HCl) 50 Mg Tablet, 1 TAB PO TID for 30 Days, #90 TAB 0 Refills 02/16/25 Aspirin (Aspirin EC) 81 Mg Tablet.dr, 81 MG PO DAILY, TAB 02/12/25 Ezetimibe (Ezetimibe) 10 Mg Tablet, 10 MG PO HS, TAB 02/12/25 Hydrochlorothiazide (Hydrochlorothiazide) 12.5 Mg Tablet, 12.5 MG PO DAILY, TAB 02/12/25 Hydralazine HCl (Hydralazine HCl) 25 Mg Tablet, 25 MG PO [id number], TAB 02/12/25 Apixaban (Eliquis) 5 Mg Tablet, 5 MG PO BID, TAB 02/12/25 Famotidine (Famotidine) 20 Mg Tablet, 20 MG PO HS, TAB 02/12/25 Mv-Min/Folic/K1/Lycopen/Lutein (Centrum Silver Men Tablet) 300 Mcg-60 Mcg-600 Mcg-300 Mcg Tablet, 1 EACH PO DAILY, TAB 02/12/25 Linaclotide (Linzess) 145 Mcg Capsule, 145 MCG PO DAILY, CAP 02/12/25 Diltiazem HCl (Diltiazem ER) 120 Mg Capsule.er, 120 MG PO DAILY, CAP 02/12/25 Rosuvastatin Calcium (Rosuvastatin Calcium) 40 Mg Tablet, 40 MG PO HS, TAB 02/12/25 Nitroglycerin (Nitroglycerin) 0.4 Mg Tab.subl, 0.4 MG SL AD PRN for CHEST PAIN, TAB.SL 02/12/25 Levothyroxine Sodium (Levothyroxine Sodium) 25 Mcg Tablet, 25 MCG PO DAILY, TAB 12/07/19 Icosapent Ethyl (Vascepa) 1 Gm Capsule, 2 CAP PO BID, CAP 12/07/19 Sitagliptin Phosphate (Januvia) 100 Mg Tablet, 100 MG PO DAILY, TAB 12/07/19 Metformin HCl (Metformin HCl) 500 Mg Tablet, 1000 MG PO BID, TAB 12/07/19 Discontinued Reported Medications Dronedarone Hydrochloride (Multaq) 400 Mg Tablet, 1 TAB PO BID for 30 Days, #60 TAB 0 Refills 02/16/25 Discontinued Scripts Colchicine (Colchicine) 0.6 Mg Tablet, 1 TAB PO BID for 7 Days, #14 TAB 0 Refills Prov:BRIDGET BALL MD 02/18/25 Pantoprazole Sodium (Protonix) 40 Mg Ectab, 1 TAB PO DAILY, #15 TAB 0 Refills Prov:BRIDGET BALL MD 02/17/25 Sucralfate (Sucralfate) 1 Gram Tablet, 1 TAB PO QID, #60 TAB 0 Refills MUST DISSOLVE IN WATER DO NOT CRUSH Prov:BRIDGET BALL MD 02/17/25 MILAN CR MD Feb 26, 2025 15:45
[2025-02-26 16:00] VITALS: BP 119/69; PULSE 87; RESP 18; TEMP 98
--- NOTE | 2025-02-26 16:06 | EKG ---
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
[2025-02-26 19:15] VITALS: BP 140/93; PULSE 87; RESP 20; TEMP 98.3
[2025-02-26 20:25] VITALS: BP 151/85; PULSE 121; RESP 18
[2025-02-26 23:01] VITALS: BP 130/75; PULSE 91; RESP 18; TEMP 98.5
[2025-02-27 03:17] VITALS: BP 131/71; PULSE 70; RESP 18; TEMP 97.9
[2025-02-27 05:15] LABS: IMMATURE GRANULOCYTE ABSOLUTE 0.02 K/uL (0-1); NUCLEATED RED BLOOD CELLS 0.0 % (0.0-0.19); PLATELET COUNT (AUTO) 224 K/uL (130-400); RED BLOOD CELL COUNT(AUTO) 3.22 MIL/uL (4.50-6.20); RED CELL DISTRIBUTION WIDTH 14.6 % (11.0-15.5); WHITE BLOOD COUNT (AUTO) 4.8 K/uL (4.8-10.8)
[2025-02-27 05:20] LABS: ASPARTATE AMINOTRANSFERASE 31.0 U/L (10-37); CREATININE 1.2 mg/dL (0.5-1.3); GLOMERULAR FILTR. RATE CALC 62.0 mL/min (>90); GLUCOSE,RANDOM 98.0 mg/dL (70-105); SODIUM SERUM 139.0 mmol/L (136-145); TOTAL PROTEIN, SERUM 6.0 g/dL (6.0-8.3); UREA NITROGEN, BLOOD 16.0 mg/dL (7-18)
[2025-02-27 07:40] VITALS: O2SAT 99
--- NOTE | 2025-02-27 08:21 | NUR ---
nurse note Notified Dr Leal of pt hr above 140 order for Lopressor 5mg iv q 5 min x 3 doses. Gave pt half of first dose and rechecked vitals. Heart rate 71 bp 116/53. Will continue to monitor and hold other 2 doses.
[2025-02-27 08:55] VITALS: BP 132/72; PULSE 93; RESP 20; TEMP 98.3
[2025-02-27 12:00] VITALS: BP 120/65; PULSE 87; RESP 18; TEMP 98.5
[2025-02-27 16:00] VITALS: BP 128/65; PULSE 65; RESP 18; TEMP 98.1
--- NOTE | 2025-02-27 16:16 | PN ---
[facility] PROGRESS NOTE Date of Service: Feb 27, 2025 Time of Service: 16:16 SUBJECTIVE: [PATIENT WAS SEEN AND EXAMINED IN HIS ROOM ON 02/27/2025. HE STATES THAT HE FEELS MUCH BETTER THAN WHEN HE CAME IN THE PALPITATIONS SUBSIDED. PATIENT DENIES ANY CHEST PAIN OR SHORTNESS FOR BREATH. ] REVIEW OF SYSTEMS CONSTITUTIONAL: Denies fevers, chills, or night sweats. No unintentional weight loss reported. NEUROLOGICAL: Denies headache, amaurosis fugax, motor weakness, sensory deficit, vertigo/spinning sensation, gait abnormalities, or tremors. ENT: No hearing loss, otalgia, otorrhea, rhinitis, rhinorrhea, hoarseness, or sore throat. CARDIOVASCULAR: Complaints of palpitation Denies any exertional angina, dyspnea on exertion, orthopnea, paroxysmal nocturnal dyspnea, life-threatening arrhythmias, claudication. PULMONARY: Denies any shortness of breath, cough, phlegm/sputum, hemoptysis, pleuritic chest pain. SLEEP: Denies morning headaches, daytime somnolence or napping. Denies difficulty falling asleep, staying asleep, waking from sleep. Denies knowledge of snoring. GASTROINTESTINAL: Complaints of diarrhea Denies any type of dysphagia to either liquids or solids. Denies nausea, vomiting, pyrosis, early satiety, abdominal pain, constipation, or changes in stool consistency or caliber. Denies coffee-ground emesis, hematemesis, hematochezia, or melanotic stools. GENITOURINARY: Denies frequency, urgency, nocturia, hematuria or incontinence (Storage/Irritative symptoms.) Low urinary stream, straining to void, urinary intermittency or hesitancy, splitting of the voiding stream, terminal dribbling. ENDOCRINOLOGIC: Denies polyuria, polydipsia, polyphagia or heat/cold intolerances. HEMATOLOGIC: Denies thrombophilia/previous clots, or coagulopathy/bleeding disorders. ONCOLOGIC: Denies personal history of malignancy. DERMATOLOGIC: Denies rashes or pruritus. PSYCHIATRIC: Denies any suicidal or homicidal ideation. Denies hallucinations. PHYSICAL EXAM GENERAL APPEARANCE: The patient is awake, alert, and oriented, in no acute cardiopulmonary distress. NEUROLOGICAL: Cranial nerves II-XII grossly intact. Motor is 5/5 in bilateral upper and lower extremities proximal to distal. No sensory deficits. HEENT: Face is symmetric. Pupils are equal and reactive. Extraocular movements are intact. NECK: Supple. No JVD. No thyromegaly. No submental, submandibular, pre-/postauricular, occipital or supraclavicular lymphadenopathy. CHEST: Normal chest expansion. No Telemetry. LUNGS: Absence of any rales, rhonchi or any wheezing. CARDIOVASCULAR: Regular. S1 and S2 normal. No appreciable rubs, murmurs or gallops. ABDOMEN: Soft, nontender, and nondistended. There is no rebound, voluntary guarding, or rigidity. : Deferred. No Werner. EXTREMITIES: Trace of edema to bilateral lower extremities SKIN: No skin breakdown. Vital Signs (last 8hr) Date Time Temp Pulse Resp B/P (MAP) Pulse Ox O2 Delivery O2 Flow Rate FiO2 02/27/25 12:00 98.4 87 18 120/65 99 Room Air 02/27/25 08:55 98.2 93 20 132/72 99 Room Air LABS: Laboratory: Test 02/27/25 11:55 02/27/25 04:26 02/26/25 05:35 02/26/25 02:27 Range/Units Whole Blood Glucose 119 H 70-110 MG/DL White Blood Count 4.8 4.8-10.8 K/uL Red Blood Count 3.22 L 4.50-6.20 MIL/uL Hemoglobin 10.0 L 14.0-18.0 g/dL Hematocrit 29.9 L 42-54 % Mean Corpuscular Volume 92.9 79-99 fL Mean Corpuscular Hemoglobin 31.1 27.0-33.0 pg Mean Corpuscular Hemoglobin Concent 33.4 32.0-36.0 g/dL Red Cell Distribution Width 14.6 11.0-15.5 % Platelet Count 224 130-400 K/uL Mean Platelet Volume 10.7 H 7.5-10.5 fL Immature Granulocyte % (Auto) 0.4 0-1 % Neutrophils (%) (Auto) 62.5 40.0-77.0 % Lymphocytes (%) (Auto) 21.2 21.0-51.0 % Monocytes (%) (Auto) 10.9 3.0-13.0 % Eosinophils (%) (Auto) 4.6 0.0-8.0 % Basophils (%) (Auto) 0.4 0.0-5.0 % Neutrophils # (Auto) 3.0 1.8-7.7 K/uL Lymphocytes # (Auto) 1.0 1.0-4.8 K/uL Monocytes # (Auto) 0.5 0.1-1.0 K/uL Eosinophils # (Auto) 0.22 0.00-0.70 K/uL Basophils # (Auto) 0.02 0.00-0.20 K/uL Absolute Immature Granulocyte (auto 0.02 0-1 K/uL Nucleated Red Blood Cells 0.0 0.0-0.19 % Sodium Level 139 136-145 mmol/L Potassium Level 3.6 3.5-5.1 mmol/L Chloride Level 106 101-111 mmol/L Carbon Dioxide Level 26 21-32 mmol/L Blood Urea Nitrogen 16 7-18 mg/dL Creatinine 1.2 0.5-1.3 mg/dL Glomerular Filtration Rate Calc 62 >90 mL/min Random Glucose 98 70-105 mg/dL Total Calcium 8.1 L 8.5-10.1 mg/dL Magnesium Level 1.90 1.80-2.40 mg/dL Total Bilirubin 0.3 0.2-1.0 mg/dL Aspartate Amino Transf (AST/SGOT) 31 10-37 U/L Alanine Aminotransferase (ALT/SGPT) 43 12-78 U/L Alkaline Phosphatase 89 50-136 U/L B-Type Natriuretic Peptide 760 H 0-100 pg/mL Total Protein 6.0 6.0-8.3 g/dL Albumin 2.8 L 3.5-5.0 g/dL Urine Color COLORLESS YELLOW Urine Appearance CLEAR CLEAR Urine pH 5.5 5.0-8.0 Urine Specific [place] 1.008 1.001-1.031 Urine Protein 30 H NEGATIVE mg/dL Urine Glucose (UA) NEGATIVE NEGATIVE mg/dL Urine Ketones NEGATIVE NEGATIVE mg/dL Urine Occult Blood NEGATIVE NEGATIVE Urine Nitrate NEGATIVE NEGATIVE Urine Bilirubin NEGATIVE NEGATIVE mg/dL Urine Urobilinogen 0.2 0.2-1.0 mg/dL Urine Leukocyte Esterase NEGATIVE NEGATIVE Crista/uL Urine RBC 0-1 0-1 /HPF Urine WBC None 0-1 /HPF Urine Squamous Epithelial Cells RARE 0-2 /HPF Urine Bacteria None None Seen /HPF Influenza Type A Antigen Negative For Type A NEGATIVE Influenza Type B Antigen Negative For Type B NEGATIVE SARS-CoV-2, RNA, NAAT NEGATIVE SARS CoV-2 NEGATIVE Test 02/26/25 02:21 Range/Units Lactic Acid Level 1.5 0.8-2.5 mmol/L Troponin I High Sensitivity 72 4-75 ng/L Current Medications Medications (Trade) Dose Ordered Sig/Lucas Route PRN Reason Start Time Stop Time Status Last Admin Dose Admin Acetaminophen (TYLenol 325MG TAB) 650 mg Q4H PRN PO MILD PAIN (1-3) 02/26/25 05:30 03/28/25 05:29 Acetaminophen (TYLenol 325MG TAB) 650 mg Q6H PRN PO TEMPERATURE GREATER THAN 101.5 02/26/25 05:30 03/28/25 05:29 Amiodarone HCl (pacERONE 200MG) 200 mg BID PO 02/26/25 09:00 03/28/25 08:59 02/27/25 07:35 200 MG Apixaban (EliquIS) 5 mg BID PO 02/26/25 09:00 03/28/25 08:59 02/27/25 07:35 5 MG Aspirin (Aspirin 81mg Ec Tab) 81 mg DAILY PO 02/26/25 09:00 03/28/25 08:59 02/27/25 07:35 81 MG Atorvastatin Calcium (LIPItor 40MG) 80 mg HS PO 02/26/25 21:00 03/28/25 20:59 02/26/25 20:28 80 MG Dextrose (D50w) 50 ml AD PRN IV HYPOGLYCEMIA PROTOCOL 02/26/25 05:30 03/28/25 05:29 Diltiazem HCl (CARDIzem 120MG CD) 120 mg BID PO 02/26/25 21:00 03/28/25 08:59 02/27/25 07:35 120 MG Diltiazem HCl (CARDIzem 120MG CD) 120 mg DAILY PO 02/26/25 09:00 02/26/25 15:47 DC 02/26/25 08:29 120 MG Famotidine (Pepcid 20mg Tab) 20 mg DAILY PO 02/26/25 09:00 03/28/25 08:59 02/27/25 07:34 20 MG Glucagon (Glucagon 1mg Kit) 1 mg AD PRN IM HYPOGLYCEMIA PROTOCOL 02/26/25 05:30 03/28/25 05:29 Hydralazine HCl ([id number] TAB) 25 mg Q8H PO 02/26/25 06:00 03/28/25 05:59 02/27/25 14:19 25 MG Hydrochlorothiazide (hydroCHLOROthiazide 25MG) 12.5 mg DAILY PO 02/26/25 09:00 03/28/25 08:59 02/27/25 07:35 12.5 MG Insulin Human Regular (humuLIN R 100 UNIT/ML 3ML) INSULIN SLIDING SCAL... ACHS SQ 02/26/25 07:30 03/28/25 07:29 Lactulose (Constulose 20gm/ 30ml Udcup) 20 gm BID PRN PO CONSTIPATION 02/27/25 16:30 03/29/25 16:29 Levothyroxine Sodium (SYNTHroid 25MCG TAB) 25 mcg DAILY PO 02/26/25 09:00 03/28/25 08:59 02/27/25 07:35 25 MCG Magnesium Sulfate 50 ml @ 0 mls/hr PROTOCOL PRN IV OTHER [SEE ORDER COMMENTS] 02/26/25 05:30 03/28/25 05:29 02/26/25 08:34 25 MLS/HR Metoprolol Tartrate (loprESSOR) 5 mg Q5MIN PRN IV heart rate above 140 02/27/25 08:00 02/27/25 09:15 DC 02/27/25 08:13 5 MG Metoprolol Tartrate (loprESSOR) 5 mg Q5MIN PRN IV for heart rate above 140 02/27/25 09:30 02/27/25 16:13 DC Ondansetron HCl (zoFRAN 4MG INJ) 4 mg Q6H PRN IV NAUSEA/VOMITING 02/26/25 05:30 03/28/25 05:29 Potassium Chloride 100 ml @ 100 mls/hr AD PRN IV POTASSIUM PROTOCOL 02/26/25 05:30 03/28/25 05:29 Potassium Chloride (K-Dur/Klor-Con 20meq) 20 meq AD PRN PO POTASSIUM PROTOCOL 02/26/25 05:30 03/28/25 05:29 02/27/25 07:35 20 MEQ Potassium Chloride (KCl 10% Elixir 20meq/15ml) 20 meq AD PRN PO POTASSIUM PROTOCOL 02/26/25 05:30 03/28/25 05:29 DIAGNOSTICS / RADIOLOGY: [ ] ASSESSMENT: Atrial fibrillation on chronic anticoagulation with recent cardiac ablation POA WITH RAPID VENTRICULAR RATE Hypertension POA Hyperlipidemia POA Hypothyroidism POA Chronic kidney disease POA Diabetes type 2 POA Possible diastolic heart failure (EF 57% per echo on 02/22/2025 bnp 630 and edema )POA Peripheral arterial disease on bilateral lower extremity POA Left carotid artery stenosis POA Obesity POA Diarrhea unspecified POA PLAN: We will admit patient in medical telemetry CONTINUE CCB, AND AMIODARONE PER CARDIOLOGY. AWAIT EP INPUT. Daily weight and strict I&O We will request labs in am Further orders to follow depending on above results LEÓN,FREDERICK Garrett MD Feb 27, 2025 16:16
--- NOTE | 2025-02-27 16:57 | PN ---
[facility] ELECTROPHYSIOLOGY PROGRESS NOTE Date Patient Seen: Feb 27, 2025 Time of Visit: 16:43 Interval History: This patient is known to me from previous ablation for atrial fibrillation. The procedure somewhat extensive consisting of of pulmonary vein isolation as well as bilateral jael lines which were difficult to isolate. The posterior wall was relatively healthy however the anterior wall exhibited significantly heterogeneous voltage with multiple areas of scar. He was discharged on his same antiarrhythmic regimen with Multaq however then returned to the hospital with recurrent atrial fibrillation and atypical flutter. He had been on colchicine for postprocedural discomfort in possibly a mild pericarditis, however this had completely resolved. He was loaded with IV amiodarone and cardioverted successfully. He states that he missed his oral amiodarone dosage for two days due to the fact that the pharmacy would not give it to him since they had an profile is being on Multaq. He did not interrupt his Eliquis. He now comes in with recurrent atrial arrhythmias. The initial EKG shows a left-sided atrial tachycardia with atrial rate of 272 beats per minute and two-to-one AV conduction. This is mislabeled as sinus tachycardia. Subsequent EKGs show the same atrial rhythm with varying degrees of rate control, from the 60s to 140 beats per minute. He is on amiodarone 200 mg b.i.d. and diltiazem ER 120 mg b.i.d., just increased from his home dose of 120 mg daily. He currently feels better since his overall rate control has somewhat improved. Today in his running in the low 100s at rest. Physical Examination: Neck: No JVD Lungs: Clear Heart: Irregular with no murmurs Extremities: No edema Laboratory: [ ] Hematology Labs: Test 02/27/25 04:26 Range/Units White Blood Count 4.8 4.8-10.8 K/uL Red Blood Count 3.22 L 4.50-6.20 MIL/uL Hemoglobin 10.0 L 14.0-18.0 g/dL Hematocrit 29.9 L 42-54 % Mean Corpuscular Volume 92.9 79-99 fL Mean Corpuscular Hemoglobin 31.1 27.0-33.0 pg Mean Corpuscular Hemoglobin Concent 33.4 32.0-36.0 g/dL Red Cell Distribution Width 14.6 11.0-15.5 % Platelet Count 224 130-400 K/uL Mean Platelet Volume 10.7 H 7.5-10.5 fL Immature Granulocyte % (Auto) 0.4 0-1 % Neutrophils (%) (Auto) 62.5 40.0-77.0 % Lymphocytes (%) (Auto) 21.2 21.0-51.0 % Monocytes (%) (Auto) 10.9 3.0-13.0 % Eosinophils (%) (Auto) 4.6 0.0-8.0 % Basophils (%) (Auto) 0.4 0.0-5.0 % Neutrophils # (Auto) 3.0 1.8-7.7 K/uL Lymphocytes # (Auto) 1.0 1.0-4.8 K/uL Monocytes # (Auto) 0.5 0.1-1.0 K/uL Eosinophils # (Auto) 0.22 0.00-0.70 K/uL Basophils # (Auto) 0.02 0.00-0.20 K/uL Absolute Immature Granulocyte (auto 0.02 0-1 K/uL Nucleated Red Blood Cells 0.0 0.0-0.19 % Chemistry Labs: Test 02/27/25 16:27 02/27/25 04:26 02/26/25 02:21 Range/Units Whole Blood Glucose 103 70-110 MG/DL Sodium Level 139 136-145 mmol/L Potassium Level 3.6 3.5-5.1 mmol/L Chloride Level 106 101-111 mmol/L Carbon Dioxide Level 26 21-32 mmol/L Blood Urea Nitrogen 16 7-18 mg/dL Creatinine 1.2 0.5-1.3 mg/dL Glomerular Filtration Rate Calc 62 >90 mL/min Random Glucose 98 70-105 mg/dL Total Calcium 8.1 L 8.5-10.1 mg/dL Magnesium Level 1.90 1.80-2.40 mg/dL Total Bilirubin 0.3 0.2-1.0 mg/dL Aspartate Amino Transf (AST/SGOT) 31 10-37 U/L Alanine Aminotransferase (ALT/SGPT) 43 12-78 U/L Alkaline Phosphatase 89 50-136 U/L B-Type Natriuretic Peptide 760 H 0-100 pg/mL Total Protein 6.0 6.0-8.3 g/dL Albumin 2.8 L 3.5-5.0 g/dL Lactic Acid Level 1.5 0.8-2.5 mmol/L Troponin I High Sensitivity 72 4-75 ng/L Impression and This patient has a significantly disease left atrium from an electrically point of view. He underwent extensive ablation and recurrences early on are not uncommon, particularly in the three month blanking period. His missing of two dose of amiodarone is unlikely to be a triggering factor based on the pharmacokinetics of the drug. Plan: 1. Continue amiodarone 200 mg b.i.d. 2. At this point, I feel it is best to improve his rate control and reassess later as an outpatient. I do not feel that repeat cardioversion at this point is reasonable. 3. We will switch from diltiazem to verapamil, starting at 40 mg q.8 hours. 4. If the patient has better rate controlled tomorrow then he can be discharged home. We will reassess in a.m.. BRIDGET BALL MD Feb 27, 2025 16:57
[2025-02-27 20:00] VITALS: BP 141/73; PULSE 68; RESP 18; TEMP 98.7
[2025-02-27] MEDS: VERAPAMIL HCL 80 MG TABLET PO SCH (20:09)
[2025-02-27] MEDS: LACTULOSE 20 GM/30 ML UDCUP PO PRN (20:11)
[2025-02-28] VITALS: BP 153/78; PULSE 67; RESP 18; TEMP 98
[2025-02-28 03:35] LABS: IMMATURE GRANULOCYTE ABSOLUTE 0.02 K/uL (0-1); NUCLEATED RED BLOOD CELLS 0.0 % (0.0-0.19); PLATELET COUNT (AUTO) 200 K/uL (130-400); RED BLOOD CELL COUNT(AUTO) 3.13 MIL/uL (4.50-6.20); RED CELL DISTRIBUTION WIDTH 14.4 % (11.0-15.5); WHITE BLOOD COUNT (AUTO) 4.8 K/uL (4.8-10.8)
[2025-02-28 03:59] LABS: CREATININE 1.1 mg/dL (0.5-1.3); GLOMERULAR FILTR. RATE CALC 69.0 mL/min (>90); GLUCOSE,RANDOM 102.0 mg/dL (70-105); SODIUM SERUM 140.0 mmol/L (136-145); UREA NITROGEN, BLOOD 20.0 mg/dL (7-18)
[2025-02-28 04:00] VITALS: BP 130/70; PULSE 65; RESP 18; TEMP 98
[2025-02-28 06:00] VITALS: BP 131/66; PULSE 66
[2025-02-28 08:00] VITALS: BP 127/77; PULSE 138; RESP 18; TEMP 98.8
--- NOTE | 2025-02-28 09:40 | NUR ---
Pt HR in the 130's no chest pain or palpitations. PT voiced, "if you hadn't told me I would not know it was fast" This service writer paged Dr Magallon and Dr Leal. Shortly after this page went out the HR was back in the 90's. Will continue to monitor and asses and await for any order from his paste up artist.
--- NOTE | 2025-02-28 10:49 | PN ---
[facility] PROGRESS NOTE Date of Service: Feb 28, 2025 Time of Service: 10:45 SUBJECTIVE: [PATIENT WAS SEEN AND EXAMINED IN HIS ROOM ON 02/27/2025. HE STATES THAT HE FEELS MUCH BETTER THAN WHEN HE CAME IN THE PALPITATIONS SUBSIDED. PATIENT DENIES ANY CHEST PAIN OR SHORTNESS FOR BREATH. 02/28/2025: Patient was seen and examined in room 430. No chest pain or shortness for breath. Patient is ambulating without a problem. Bowels moving as well. Per nursing staff he started his verapamil last night and received another dose this morning. He did have recurrence of the rapid ventricular rate of his AFib up to 140s however patient states he did not notice it or have palpitations this morning. Heart rate has since come down. ] REVIEW OF SYSTEMS CONSTITUTIONAL: Denies fevers, chills, or night sweats. No unintentional weight loss reported. NEUROLOGICAL: Denies headache, amaurosis fugax, motor weakness, sensory deficit, vertigo/spinning sensation, gait abnormalities, or tremors. ENT: No hearing loss, otalgia, otorrhea, rhinitis, rhinorrhea, hoarseness, or sore throat. CARDIOVASCULAR: no palpitation Denies any exertional angina, dyspnea on exe rtion, orthopnea, paroxysmal nocturnal dyspnea, life-threatening arrhythmias, claudication. PULMONARY: Denies any shortness of breath, cough, phlegm/sputum, hemoptysis, pleuritic chest pain. SLEEP: Denies morning headaches, daytime somnolence or napping. Denies difficulty falling asleep, staying asleep, waking from sleep. Denies knowledge of snoring. GASTROINTESTINAL: Denies any type of dysphagia to either liquids or solids. Denies nausea, vomiting, pyrosis, early satiety, abdominal pain, constipation, or changes in stool consistency or caliber. Denies coffee-ground emesis, hematemesis, hematochezia, or melanotic stools. GENITOURINARY: Denies frequency, urgency, nocturia, hematuria or incontinence (Storage/Irritative symptoms.) Low urinary stream, straining to void, urinary intermittency or hesitancy, splitting of the voiding stream, terminal dribbling. ENDOCRINOLOGIC: Denies polyuria, polydipsia, polyphagia or heat/cold intolerances. HEMATOLOGIC: Denies thrombophilia/previous clots, or coagulopathy/bleeding disorders. ONCOLOGIC: Denies personal history of malignancy. DERMATOLOGIC: Denies rashes or pruritus. PSYCHIATRIC: Denies any suicidal or homicidal ideation. Denies hallucinations. PHYSICAL EXAM GENERAL APPEARANCE: The patient is awake, alert, and oriented, in no acute cardiopulmonary distress. NEUROLOGICAL: Cranial nerves II-XII grossly intact. Motor is 5/5 in bilateral upper and lower extremities proximal to distal. No sensory deficits. HEENT: Face is symmetric. Pupils are equal and reactive. Extraocular movements are intact. NECK: Supple. No JVD. No thyromegaly. No submental, submandibular, pre- /postauricular, occipital or supraclavicular lymphadenopathy. CHEST: Normal chest expansion. No Telemetry. LUNGS: Absence of any rales, rhonchi or any wheezing. CARDIOVASCULAR: Regular. S1 and S2 normal. No appreciable rubs, murmurs or gallops. ABDOMEN: Soft, nontender, and nondistended. There is no rebound, voluntary guarding, or rigidity. : Deferred. No Werner. EXTREMITIES: Trace of edema to bilateral lower extremities, mild ecchymosis noted to the dorsum of the distal aspect of his left foot with some tenderness to palpation to the area. Range of motion to the toes and sensation are intact SKIN: No skin breakdown. Vital Signs (last 8hr) Date Time Temp Pulse Resp B/P (MAP) Pulse Ox O2 Delivery O2 Flow Rate FiO2 02/28/25 08:00 98.8 138 18 127/77 Room Air 02/28/25 06:00 66 131/66 96 02/28/25 04:00 98.1 65 18 130/70 96 Room Air 21 LABS: Laboratory: Test 02/28/25 05:06 02/28/25 03:20 02/27/25 04:26 Range/Units Whole Blood Glucose 97 70-110 MG/DL White Blood Count 4.8 4.8-10.8 K/uL Red Blood Count 3.13 L 4.50-6.20 MIL/uL Hemoglobin 9.8 L 14.0-18.0 g/dL Hematocrit 29.1 L 42-54 % Mean Corpuscular Volume 93.0 79-99 fL Mean Corpuscular Hemoglobin 31.3 27.0-33.0 pg Mean Corpuscular Hemoglobin Concent 33.7 32.0-36.0 g/dL Red Cell Distribution Width 14.4 11.0-15.5 % Platelet Count 200 130-400 K/uL Mean Platelet Volume 10.0 7.5-10.5 fL Immature Granulocyte % (Auto) 0.4 0-1 % Neutrophils (%) (Auto) 60.2 40.0-77.0 % Lymphocytes (%) (Auto) 22.5 21.0-51.0 % Monocytes (%) (Auto) 12.1 3.0-13.0 % Eosinophils (%) (Auto) 4.4 0.0-8.0 % Basophils (%) (Auto) 0.4 0.0-5.0 % Neutrophils # (Auto) 2.9 1.8-7.7 K/uL Lymphocytes # (Auto) 1.1 1.0-4.8 K/uL Monocytes # (Auto) 0.6 0.1-1.0 K/uL Eosinophils # (Auto) 0.21 0.00-0.70 K/uL Basophils # (Auto) 0.02 0.00-0.20 K/uL Absolute Immature Granulocyte (auto 0.02 0-1 K/uL Nucleated Red Blood Cells 0.0 0.0-0.19 % Sodium Level 140 136-145 mmol/L Potassium Level 4.0 3.5-5.1 mmol/L Chloride Level 107 101-111 mmol/L Carbon Dioxide Level 27 21-32 mmol/L Blood Urea Nitrogen 20 H 7-18 mg/dL Creatinine 1.1 0.5-1.3 mg/dL Glomerular Filtration Rate Calc 69 >90 mL/min Random Glucose 102 70-105 mg/dL Total Calcium 8.4 L 8.5-10.1 mg/dL Thyroid Stimulating Hormone (TSH) 2.66 # 0.36-3.74 uIU/mL Magnesium Level 1.90 1.80-2.40 mg/dL Total Bilirubin 0.3 0.2-1.0 mg/dL Aspartate Amino Transf (AST/SGOT) 31 10-37 U/L Alanine Aminotransferase (ALT/SGPT) 43 12-78 U/L Alkaline Phosphatase 89 50-136 U/L B-Type Natriuretic Peptide 760 H 0-100 pg/mL Total Protein 6.0 6.0-8.3 g/dL Albumin 2.8 L 3.5-5.0 g/dL Current Medications Medications (Trade) Dose Ordered Sig/Lucas Route PRN Reason Start Time Stop Time Status Last Admin Dose Admin Acetaminophen (TYLenol 325MG TAB) 650 mg Q4H PRN PO MILD PAIN (1-3) 02/26/25 05:30 03/28/25 05:29 Acetaminophen (TYLenol 325MG TAB) 650 mg Q6H PRN PO TEMPERATURE GREATER THAN 101.5 02/26/25 05:30 03/28/25 05:29 Amiodarone HCl (pacERONE 200MG) 200 mg BID PO 02/26/25 09:00 03/28/25 08:59 02/28/25 07:30 200 MG Apixaban (EliquIS) 5 mg BID PO 02/26/25 09:00 03/28/25 08:59 02/28/25 07:38 5 MG Aspirin (Aspirin 81mg Ec Tab) 81 mg DAILY PO 02/26/25 09:00 03/28/25 08:59 02/28/25 07:38 81 MG Atorvastatin Calcium (LIPItor 40MG) 80 mg HS PO 02/26/25 21:00 03/28/25 20:59 02/27/25 20:10 80 MG Dextrose (D50w) 50 ml AD PRN IV HYPOGLYCEMIA PROTOCOL 02/26/25 05:30 03/28/25 05:29 Diltiazem HCl (CARDIzem 120MG CD) 120 mg BID PO 02/26/25 21:00 02/27/25 16:59 DC 02/27/25 07:35 120 MG Diltiazem HCl (CARDIzem 120MG CD) 120 mg DAILY PO 02/26/25 09:00 02/26/25 15:47 DC 02/26/25 08:29 120 MG Famotidine (Pepcid 20mg Tab) 20 mg DAILY PO 02/26/25 09:00 03/28/25 08:59 02/28/25 07:38 20 MG Glucagon (Glucagon 1mg Kit) 1 mg AD PRN IM HYPOGLYCEMIA PROTOCOL 02/26/25 05:30 03/28/25 05:29 Hydralazine HCl ([id number] TAB) 25 mg Q8H PO 02/26/25 06:00 03/28/25 05:59 02/28/25 06:10 25 MG Hydrochlorothiazide (hydroCHLOROthiazide 25MG) 12.5 mg DAILY PO 02/26/25 09:00 03/28/25 08:59 02/28/25 07:39 12.5 MG Insulin Human Regular (humuLIN R 100 UNIT/ML 3ML) INSULIN SLIDING SCAL... ACHS SQ 02/26/25 07:30 03/28/25 07:29 Lactulose (Constulose 20gm/ 30ml Udcup) 20 gm BID PRN PO CONSTIPATION 02/27/25 16:30 03/29/25 16:29 02/28/25 07:41 20 GM Levothyroxine Sodium (SYNTHroid 25MCG TAB) 25 mcg DAILY PO 02/26/25 09:00 03/28/25 08:59 02/28/25 07:38 25 MCG Magnesium Sulfate 50 ml @ 0 mls/hr PROTOCOL PRN IV OTHER [SEE ORDER COMMENTS] 02/26/25 05:30 03/28/25 05:29 02/26/25 08:34 25 MLS/HR Metoprolol Tartrate (loprESSOR) 5 mg Q5MIN PRN IV heart rate above 140 02/27/25 08:00 02/27/25 09:15 DC 02/27/25 08:13 5 MG Metoprolol Tartrate (loprESSOR) 5 mg Q5MIN PRN IV for heart rate above 140 02/27/25 09:30 02/27/25 16:13 DC Ondansetron HCl (zoFRAN 4MG INJ) 4 mg Q6H PRN IV NAUSEA/VOMITING 02/26/25 05:30 02/27/25 16:59 DC Potassium Chloride 100 ml @ 100 mls/hr AD PRN IV POTASSIUM PROTOCOL 02/26/25 05:30 03/28/25 05:29 Potassium Chloride (K-Dur/Klor-Con 20meq) 20 meq AD PRN PO POTASSIUM PROTOCOL 02/26/25 05:30 03/28/25 05:29 02/27/25 07:35 20 MEQ Potassium Chloride (KCl 10% Elixir 20meq/15ml) 20 meq AD PRN PO POTASSIUM PROTOCOL 02/26/25 05:30 03/28/25 05:29 Verapamil HCl (Calan/Isoptin) 40 mg TID PO 02/27/25 21:00 03/29/25 20:59 02/28/25 07:30 40 MG DIAGNOSTICS / RADIOLOGY: [ ] ASSESSMENT: Atrial fibrillation on chronic anticoagulation with recent cardiac ablation POA WITH RAPID VENTRICULAR RATE Hypertension POA Hyperlipidemia POA Hypothyroidism POA Chronic kidney disease POA Diabetes type 2 POA Possible diastolic heart failure (EF 57% per echo on 02/22/2025 bnp 630 and edema )POA Peripheral arterial disease on bilateral lower extremity POA Left carotid artery stenosis POA Obesity POA Diarrhea unspecified POA resolved Mild bruising to left foot PLAN: We will admit patient in medical telemetry CONTINUE CCB, AND AMIODARONE PER CARDIOLOGY. Patient on verapamil and amiodarone and anticoagulated with Eliquis. Daily weight and strict I&O We will request labs in am Further orders to follow depending on above results FREDERICK LEÓN MD Feb 28, 2025 10:49
[2025-02-28 12:07] VITALS: BP 118/70; PULSE 76; RESP 20; TEMP 98.1
[2025-02-28 15:15] VITALS: BP 130/81; PULSE 67; RESP 18; TEMP 98.4
[2025-02-28] MEDS ORDERED: VERA120T92 PO (16:17)
--- NOTE | 2025-02-28 16:21 | PN ---
[facility] CARDIOLOGY PROGRESS NOTE Date Patient Seen: Feb 28, 2025 Time of Visit: 16:19 Interval History: The patient feels much better today. He is tolerating verapamil 40 mg t.i.d.. He is not experiencing any constipation. His heart rate is generally in the 60s to 80s, in atrial flutter. He did have one brief episode this morning of heart rate of 140 beats per minute but this was transient. Currently he is in his atypical left-sided atrial flutter with a regular ventricular response, rate 65 beats per minute. Physical Examination: Neck: No JVD Lungs: Clear Heart: Irregular with no murmurs Extremities: No edema Laboratory: [ ] Hematology Labs: Test 02/28/25 03:20 Range/Units White Blood Count 4.8 4.8-10.8 K/uL Red Blood Count 3.13 L 4.50-6.20 MIL/uL Hemoglobin 9.8 L 14.0-18.0 g/dL Hematocrit 29.1 L 42-54 % Mean Corpuscular Volume 93.0 79-99 fL Mean Corpuscular Hemoglobin 31.3 27.0-33.0 pg Mean Corpuscular Hemoglobin Concent 33.7 32.0-36.0 g/dL Red Cell Distribution Width 14.4 11.0-15.5 % Platelet Count 200 130-400 K/uL Mean Platelet Volume 10.0 7.5-10.5 fL Immature Granulocyte % (Auto) 0.4 0-1 % Neutrophils (%) (Auto) 60.2 40.0-77.0 % Lymphocytes (%) (Auto) 22.5 21.0-51.0 % Monocytes (%) (Auto) 12.1 3.0-13.0 % Eosinophils (%) (Auto) 4.4 0.0-8.0 % Basophils (%) (Auto) 0.4 0.0-5.0 % Neutrophils # (Auto) 2.9 1.8-7.7 K/uL Lymphocytes # (Auto) 1.1 1.0-4.8 K/uL Monocytes # (Auto) 0.6 0.1-1.0 K/uL Eosinophils # (Auto) 0.21 0.00-0.70 K/uL Basophils # (Auto) 0.02 0.00-0.20 K/uL Absolute Immature Granulocyte (auto 0.02 0-1 K/uL Nucleated Red Blood Cells 0.0 0.0-0.19 % Chemistry Labs: Test 02/28/25 16:04 02/28/25 03:20 02/27/25 04:26 Range/Units Whole Blood Glucose 103 70-110 MG/DL Sodium Level 140 136-145 mmol/L Potassium Level 4.0 3.5-5.1 mmol/L Chloride Level 107 101-111 mmol/L Carbon Dioxide Level 27 21-32 mmol/L Blood Urea Nitrogen 20 H 7-18 mg/dL Creatinine 1.1 0.5-1.3 mg/dL Glomerular Filtration Rate Calc 69 >90 mL/min Random Glucose 102 70-105 mg/dL Total Calcium 8.4 L 8.5-10.1 mg/dL Thyroid Stimulating Hormone (TSH) 2.66 # 0.36-3.74 uIU/mL Magnesium Level 1.90 1.80-2.40 mg/dL Total Bilirubin 0.3 0.2-1.0 mg/dL Aspartate Amino Transf (AST/SGOT) 31 10-37 U/L Alanine Aminotransferase (ALT/SGPT) 43 12-78 U/L Alkaline Phosphatase 89 50-136 U/L B-Type Natriuretic Peptide 760 H 0-100 pg/mL Total Protein 6.0 6.0-8.3 g/dL Albumin 2.8 L 3.5-5.0 g/dL Impression Atypical left-sided atrial flutter, now rate controlled Plan: 1. At this point the patient can be discharged home. 2. Continue amiodarone 200 mg b.i.d. 3. Transition to verapamil ER 120 mg daily 4. Follow up with me in two weeks. BRIDGET BALL MD Feb 28, 2025 16:21
--- NOTE | 2025-02-28 17:02 | DS ---
Discharge Summary Hospital Course Summary: 79-year-old male was admitted with palpitations. Evidently he had been without his amiodarone for two days the pharmacist would not release it to him because he was being changed from Multaq to amiodarone. He came in in AFib with rapid ventricular response and was placed on verapamil by the elec trophysiologist and amiodarone 200 b.i.d.. Patient's her rate normalized quickly and on hospital day 2. Dr. Ball EP physician decided to go ahead and discharge the patient home on extended release verapamil 120 mg daily along with the amiodarone 200 b.i.d.. For the patient's physical exam on the day of discharge please see my note already dictated. Assessment/Plan: ASSESSMENT: Atrial fibrillation on chronic anticoagulation with recent cardiac ablation POA WITH RAPID VENTRICULAR RATE Hypertension POA Hyperlipidemia POA Hypothyroidism POA Chronic kidney disease POA Diabetes type 2 POA Possible diastolic heart failure (EF 57% per echo on 02/22/2025 bnp 630 and edema )POA Peripheral arterial disease on bilateral lower extremity POA Left carotid artery stenosis POA Obesity POA Diarrhea unspecified POA resolved Mild bruising to left foot PLAN: We will admit patient in medical telemetry CONTINUE CCB, AND AMIODARONE PER CARDIOLOGY. Patient on verapamil and amiodarone and anticoagulated with Eliquis. Daily weight and strict I&O We will request labs in am Further orders to follow depending on above results Home Medications: Active Scripts Amiodarone HCl (Amiodarone HCl) 200 Mg Tablet, 1 TAB PO BID, #60 TAB 3 Refills Prov:BRIDGET BALL MD 02/23/25 Reported Medications Hydralazine HCl (Hydralazine HCl) 50 Mg Tablet, 1 TAB PO TID for 30 Days, #90 TAB 0 Refills 02/16/25 Aspirin (Aspirin EC) 81 Mg Tablet., 81 MG PO DAILY, TAB 02/12/25 Ezetimibe (Ezetimibe) 10 Mg Tablet, 10 MG PO HS, TAB 02/12/25 Hydrochlorothiazide (Hydrochlorothiazide) 12.5 Mg Tablet, 12.5 MG PO DAILY, TAB 02/12/25 Hydralazine HCl (Hydralazine HCl) 25 Mg Tablet, 25 MG PO [id number], TAB 02/12/25 Apixaban (Eliquis) 5 Mg Tablet, 5 MG PO BID, TAB 02/12/25 Famotidine (Famotidine) 20 Mg Tablet, 20 MG PO HS, TAB 02/12/25 Mv-Min/Folic/K1/Lycopen/Lutein (Centrum Silver Men Tablet) 300 Mcg-60 Mcg-600 Mcg-300 Mcg Tablet, 1 EACH PO DAILY, TAB 02/12/25 Linaclotide (Linzess) 145 Mcg Capsule, 145 MCG PO DAILY, CAP 02/12/25 Diltiazem HCl (Diltiazem ER) 120 Mg Capsule.er, 120 MG PO DAILY, CAP 02/12/25 Rosuvastatin Calcium (Rosuvastatin Calcium) 40 Mg Tablet, 40 MG PO HS, TAB 02/12/25 Nitroglycerin (Nitroglycerin) 0.4 Mg Tab.subl, 0.4 MG SL AD PRN for CHEST PAIN, TAB.SL 02/12/25 Levothyroxine Sodium (Levothyroxine Sodium) 25 Mcg Tablet, 25 MCG PO DAILY, TAB 12/07/19 Icosapent Ethyl (Vascepa) 1 Gm Capsule, 2 CAP PO BID, CAP 12/07/19 Sitagliptin Phosphate (Januvia) 100 Mg Tablet, 100 MG PO DAILY, TAB 12/07/19 Metformin HCl (Metformin HCl) 500 Mg Tablet, 1000 MG PO BID, TAB 12/07/19 Discontinued Reported Medications Dronedarone Hydrochloride (Multaq) 400 Mg Tablet, 1 TAB PO BID for 30 Days, #60 TAB 0 Refills 02/16/25 Discontinued Scripts Colchicine (Colchicine) 0.6 Mg Tablet, 1 TAB PO BID for 7 Days, #14 TAB 0 Refills Prov:BRIDGET BALL MD 02/18/25 Pantoprazole Sodium (Protonix) 40 Mg Ectab, 1 TAB PO DAILY, #15 TAB 0 Refills Prov:BRIDGET BALL MD 02/17/25 Sucralfate (Sucralfate) 1 Gram Tablet, 1 TAB PO QID, #60 TAB 0 Refills MUST DISSOLVE IN WATER DO NOT CRUSH Prov:BRIDGET BALL MD 02/17/25 Time spent arranging discharge: 31-60 minutes FREDERICK LEÓN MD Feb 28, 2025 17:02
--- NOTE | 2025-02-28 17:27 | NUR ---
Discharge instructions given and explained. All questions are answered. PIV is removed. All belongings are packed by the patient. Tele pac is secured. Pt already has his own appointment with Dr Magallon. He is wheeled to his car and he departed in his private vehicle.
== END 2025-02-28 17:30 | disposition home or self-care (01) ==
LOC: EDH 02:04 → INTOOBSV 05:19 → EDHIP 05:19 → UNDOADMOB 05:19 → EDHIP 16:09 → 4AH 16:09 → EDHIP 02-27 08:30 → 4AH 02-27 08:30
PROVIDERS: ADMIT Hospitalist; ATTEND Hospitalist
DX: I48.0 Paroxysmal atrial fibrillation (principal); R00.0 Tachycardia, unspecified; E03.9 Hypothyroidism, unspecified; E11.22 Type 2 diabetes mellitus with diabetic chronic kidney disease; E66.9 Obesity, unspecified; E78.00 Pure hypercholesterolemia, unspecified; I13.0 Hypertensive heart and chronic kidney disease with heart failure and stage 1 through stage 4 chronic kidney disease, or unspecified chronic kidney disease; I25.10 Atherosclerotic heart disease of native coronary artery without angina pectoris; I50.32 Chronic diastolic (congestive) heart failure; N18.9 Chronic kidney disease, unspecified; I65.22 Occlusion and stenosis of left carotid artery; Z87.891 Personal history of nicotine dependence; Z20.822 Contact with and (suspected) exposure to COVID-19; Z79.01 Long term (current) use of anticoagulants; Z79.899 Other long term (current) drug therapy; Z85.038 Personal history of other malignant neoplasm of large intestine; Z68.32 Body mass index [BMI] 32.0-32.9, adult
CPT/HCPCS: 96365; 96366; 96375; 99284; 83735 ×2; 84484; 80048 ×2; 83880 ×2; 85025 ×3; 87040 ×2; 87804 ×2; 82948 ×10; 83605; 81001; 36415 ×3; 87635; 71045; 93005 ×2; 96376; 80053; 84443; 82270; 87507; G0378 ×33; J3475; J3490 ×2; 99285